=== PATIENT | female | born 1950 | race Caucasian/White ===

== ENCOUNTER 2022-07-17 07:24 | Inpatient (IN) | payer MEDICARE, SELFPAY ==
[2022-07-17] VITALS (47 sets, daily range): BP systolic 73–196; BP diastolic 46–104; PULSE 66–100; RESP 15–24; TEMP 36.6–37.1; O2SAT 95–100; BMI 24.7; BMI 20.5
--- NOTE | 2022-07-17 07:20 | ECG_ITS ---
APPROVED REPORT Exam: Resting ECG HR:73 bpm ECG Measurements Heart Rate 73 AXES NM 138 P 5 QRSd 76 QRS 44 QT 335 T 5 QTc 362 Conclusion SINUS RHYTHM LOW QRS VOLTAGE IN PRECORDIAL LEADS [QRS DEFLECTION < 1.0 mV IN CHEST LEADS] ST DEVIATION AND MODERATE T-WAVE ABNORMALITY, CONSIDER ANTERIOR ISCHEMIA [-0.1+ mV T-WAVE IN V3/V4] ABNORMAL ECG UNCONFIRMED REPORT Electronically signed by : Ryne Whitaker MD 07/17/2022 13:19:57
--- NOTE | 2022-07-17 07:25 | PC.NURSE ---
at , assessing pt. Pt c/o pain more in her lower left chest with pain going down bilateral arms.
--- NOTE | 2022-07-17 07:38 | XR_ITS ---
FINAL REPORT CLINICAL HISTORY: chest pain FINDINGS: A single portable view of the chest was obtained. The heart size and pulmonary vascularity are within normal limits. The mediastinum is within normal limits. There are mild right lung base opacities which may represent atelectasis or pneumonia. The bony thorax is intact. IMPRESSION: Mild right lung base atelectasis or pneumonia. Reviewed, Interpreted and Dictated by Hany Weston III, MD Transcribed by Candy Blanco Authenticated and [facility]
--- NOTE | 2022-07-17 07:40 | PC.NURSE ---
pt placed in gown, second IV placed, groin shaved, family at bs
--- NOTE | 2022-07-17 07:42 | ECG_ITS ---
APPROVED REPORT Exam: Resting ECG HR:75 bpm ECG Measurements Heart Rate 75 AXES OH 147 P 44 QRSd 78 QRS 34 QT 372 T -15 QTc [address] DEVIATION AND MODERATE T-WAVE ABNORMALITY, CONSIDER ANTEROLATERAL ISCHEMIA [-0.1+ mV T-WAVE IN V3-V6] ST DEVIATION AND MODERATE T-WAVE ABNORMALITY, CONSIDER INFERIOR ISCHEMIA [-0.1+ mV T-WAVE IN II/aVF] ABNORMAL ECG UNCONFIRMED REPORT Electronically signed by : Ryne Whitaker MD 07/17/2022 13:19:45
--- NOTE | 2022-07-17 07:45 | HMH.EDCP ---
Discharge Plan Disposition Patient Disposition: Admitted As Inpatient Referrals Follow up/Referrals: Provider,Referral, [Primary Care Provider] - See instructions Clinical Impressions Clinical Impression: Unstable angina pectoris, Acute coronary syndrome Discharge ED Provider: Denny Gibbs Chest Pain HPI General Chief Complaint: Chest Pain Stated Complaint: chest pain Time Seen by Provider: 07/17/22 07:30 Mode of Arrival: Ambulatory Source of Information: Patient, Spouse and Medical Record Limitations: No Limitations Description of Symptoms (Recalled from ER Triage Doc. by RN): pt comes in with chest pain that began about an hour ago. pt states that she had her normal routine, coffee and cookies for breakfast then the pain began in the middle of her chest. upon arrival pain moved down her into bilateral breasts and arms. History of Present Illness HPI narrative: pt with acute onset of chest pain this am - pt usually w/o chest pain - no currents meds - no known diabetes or ht dis - reports has memory issues complaint: chest pain indicative of cardiac Onset (ago): hour(s) Duration: constant Activity at onset: awoke with symptoms Pain location: substernal Severity: severe Quality: aching Pain radiation: RUE and LUE Associated symptoms: nausea Treatments prior to or on arrival for Cardiac Chest Pain: none ROXANA Score for Non-Stemi Age of Patient: 70-79 years old Heart Rate: 70-89 bpm Systolic Blood Pressure: 160-199 mmHg Serum Creatinine: 0.40-0.79 mg/dl CHF Killip Class: I-No CHF Other Risk Factors: None Non-Stemi Risk Score: 98 Risk Stratification: 1-108 = Low Risk Related Data On Oral Contraceptives: No Allergies Allergy/AdvReac Type Severity Reaction Status Date / Time No Known Allergies Allergy Verified 07/17/22 07:30 [facility] Disclaimer: The information contained in this section may have been updated after the patient was seen, as this information can be updated by other users. Social History Smoking Status: Never smoker alcohol intake: never current occupational status: retired Travel in the last 8 weeks: None ROS Obtained: Yes All systems reviewed & no additional complaints except as documented Physical Exam General General appearance: alert Head Head exam: normocephalic Eye Eye exam: Present PERRL and EOMI ENT ENT exam: Present mucous membranes moist Neck Neck exam: Present trachea midline Respiratory Respiratory exam: Present normal lung sounds bilaterally; Absent respiratory distress Cardiovascular Cardiovascular exam: Present regular rate, systolic murmur and +S4 Abdominal Exam Abdominal exam: Present soft Extremities Exam Extremities exam: Present full ROM Neurological Exam Neurological exam: Present alert, oriented X3 and CN II-XII intact; Absent motor sensory deficit Psychiatric Psychiatric exam: Present normal affect Skin Skin exam: Absent rash Medical Decision Making Medical Records Medical records reviewed: Yes I reviewed the patient's medical records. Aiden Inquiry Pt receiving controlled substance: No Vital Signs: 07/17/22 07:29 07/17/22 07:30 07/17/22 07:37 Temperature 98.7 F Temperature Source Oral Pulse Rate 77 74 Pulse Rate [Left] 71 Respiratory Rate 16 15 15 Blood Pressure 180/92 H 125/76 Blood Pressure [Right Arm] 196/98 H Blood Pressure Mean 118 94 Blood Pressure Mean [Right Arm] 130 02 Sat by Pulse Oximetry 100 98 99 07/17/22 07:41 07/17/22 07:43 07/17/22 07:48 Temperature Temperature Source Pulse Rate 77 77 68 Pulse Rate [Left] Respiratory Rate Blood Pressure 73/46 L 100/60 L 121/72 Blood Pressure [Right Arm] Blood Pressure Mean 55 68 79 Blood Pressure Mean [Right Arm] 02 Sat by Pulse Oximetry 07/17/22 07:55 07/17/22 08:01 Temperature Temperature Source Pulse Rate 71 68 Pulse Rate [Left] Respiratory Rate Blood Pressure 141/74 H 141/76 H Blood Pressure [R
[2022-07-17 07:49] LABS: Basophils % 0.4 % (0.1-2.0); Eosinophils # 0.1 K/mm3 (0.0-0.4); Eosinophils % 0.7 % (0.1-12.0); Hematocrit 30.7 % (37.0-47.0); Hemoglobin 10.1 g/dL (12.2-16.2); Lymphocytes # 2.2 K/mm3 (0.7-4.5); Lymphocytes % 22.8 % (10-50); Mean Corpuscular HGB Conc 32.9 g/dL (31.8-35.4); Mean Corpuscular Hemoglobin 30.1 pg (27.0-31.2); Mean Corpuscular Volume 91.4 fl (81-99); Mean Platelet Volume 7.8 fl (7.4-10.4); Monocytes # 0.5 K/mm3 (0.1-1.0); Monocytes % 5.7 % (1.7-9.3); Neutrophils # 6.7 K/mm3 (1.8-7.8); Neutrophils % 70.4 % (37.0-80.0); Platelet Count 491 K/mm3 (142-424); Red Blood Count 3.35 M/mm3 (4.20-5.40); Red Cell Distribution Width 13.7 % (11.5-17.5); White Blood Count 9.5 K/mm3 (4.8-10.8)
[2022-07-17 07:53] LABS: Anion Gap 12.8 mEq/L (5-15); Blood Urea Nitrogen 12 mg/dl (7-17); Calcium 8.9 mg/dl (8.4-10.2); Carbon Dioxide 26 mmol/L (22.0-30.0); Chloride 102 mmol/L (98-107); Creatinine Clearance Estimated 49 mL/min (50-200); Estimated Glomerular Filt Rate 82 ml/min (>60); GFR (African American) 99 ML/MIN (>60); Glucose 142 mg/dl (74-100); Potassium 3.8 mmoL/L (3.5-5.1); Sodium 137 mmol/L (136-145)
[2022-07-17 08:04] LABS: Alanine Aminotransferase 16 U/L (12-78); Albumin Level 4.3 g/dl (3.5-5.0); Alkaline Phosphatase 111 U/L (38-126); Aspartate Amino Transferase 24 U/L (14-36); Bilirubin,Direct 0.3 mg/dl (0.0-0.4); Bilirubin,Indirect 0.2 mg/dL (0.0-0.9); Bilirubin,Total 0.5 mg/dl (0.2-1.3); Bilirubin,Unconjugated 0.2 mg/dL (0.0-1.1); Total Protein,Serum 7.2 g/dl (6.3-8.2)
--- NOTE | 2022-07-17 08:04 | PC.NURSE ---
Called Cardilology for Dr Gibbs to speak to Jacques Lema, Cardiology is going to text him and have him call ER
[2022-07-17 08:10] LABS: Prothrombin Time 9.8 seconds (10.1-12.5)
[2022-07-17 08:11] LABS: Activated Partial Thrombo Time 18.8 seconds (22.8-30.6)
--- NOTE | 2022-07-17 08:11 | PC.NURSE ---
Dr Gibbs consulted with Jacques Lema on patient.
--- NOTE | 2022-07-17 08:12 | PC.NURSE ---
Pt c/o pain that got better but has came back at this time. Jacques Lema at bs, additional dose of nitro verbally ordered.
[2022-07-17 08:17] LABS: Troponin I 0.03 ng/ml (0.00-0.034)
--- NOTE | 2022-07-17 08:20 | PC.NURSE ---
Jacques Lema in with patient.
[2022-07-17 08:26] LABS: Chol/HDL Ratio 5.7 (1-3.5); Cholesterol 277 mg/dl (140-200); HDL Cholesterol 49 mg/dl (40-60); Triglycerides 279 mg/dl (30-150); VLDL Cholesterol 56 mg/dL (0-40)
--- NOTE | 2022-07-17 08:28 | IR_ITS ---
APPROVED REPORT Patient Location: Inpatient Sky Cap: MIRIAM Martinez RT (R) PROCEDURES Selective coronary angiogram Drug-eluting stent deployment to the ostial proximal mid dominant circumflex artery Drug-eluting stent deployment to the first obtuse marginal artery Drug-eluting stent deployment to the ramus intermedius Drug-eluting stent deployment to the proximal LAD Drug-eluting stent deployment to the proximal first diagonal artery INDICATION Acute coronary syndrome, Acute non-ST elevation myocardial infarction, Coronary artery disease SCAI INDICATION Clinical history: 73-year-old lady with moderate dementia presents to the hospital with severe chest pain. Patient was physically healthy otherwise but did suffer from moderate dementia. It was discussed with her he wanted everything done for the patient and the patient was pleasant and alert and did agree to proceed with cardiac catheterization. Prior to the cardiac catheterization it was decided patient would not be a bypass candidate because of the moderate dementia. All efforts to revascularize the patient would be restricted to percutaneous approach. This was decided prior to the cath Informed consent was obtained prior to the procedure. COMPLICATIONS None Estimated Blood Loss: Less than 10 ML TECHNIQUE One percent lidocaine used to anesthetize the right anterior aspect of the wrist. The right radial artery was accessed via the Seldinger technique. A 6 Nepali sheath was placed in the right radial artery. 2.5 mg of verapamil, 800 mcg of nitroglycerin, 1mg Lidocaine and 5000 U Heparin were given through the arterial sheath. The papa catheter was also used to perform selective coronary angiography. Wires were placed down the circumflex artery as well as the ramus intermedius. The ramus intermedius was predilated with a 2 mm x 12 mm balloon. Following this a 2.0 x 22 mm resolute Uvaldo stent was placed in the ostial proximal ramus intermedius reducing the critical stenosis to 0%. A wire was placed into the circumflex artery where predilatation was made in the circumflex artery. A 3.5 x 18 mm resolute Cascade stent was placed in the first obtuse marginal artery reducing the stenosis to 0%. There was a filling defect proximal to this therefore a 3.5 x 38 mm resolute Cascade stent was deployed at 20 elizabeth reducing the stenosis. An additional 3 mm x 12 mm resolute Uvaldo stent was placed distal to the first circumflex artery stent and then placed into a large obtuse marginal artery and deployed at 20 elizabeth. The balloon was brought back and deployed at 24 elizabeth to post dilate and mesh the 2 stents. Following this an additional 3.5 x 22 mm resolute Cascade stent was then placed in the ostial proximal circumflex artery overlapping the 38 mm stent and then deployed at 24 elizabeth reducing the stenosis. CASEY-3 flow was present before and after the procedure. Wire was placed into the LAD and then first diagonal artery. Predilatation was made and a 2.5 x 38 mm mm resolute Uvaldo stent was placed in the first diagonal artery. An additional 2.5 x 12 mm resolute Cascade stent was then placed proximal to this at 24 elizabeth. ANGIOGRAPHIC RESULTS The left main artery Normal The left anterior descending artery Ostially stenosed 90% and then gives rise to a large first diagonal artery which is 90% stenosis. Immediately after the first diagonal artery the LAD is occluded which appears to be chronic occlusion and fills via right to left collaterals The circumflex artery Is a large dominant vessel with a proximal 90% concentric calcified stenosis as well as a 70% stenosis and a large first obtuse marginal artery. A large ramus intermedius has an ostial proximal
[2022-07-17 08:30] LABS: Hemoglobin A1C 5.8 % (4.0-6.0)
[2022-07-17 08:37] LABS: Direct LDL Cholesterol 184.41 mg/dL (100-129)
--- NOTE | 2022-07-17 08:41 | PC.NURSE ---
Pt c/o continued pain at this time. Jacques ALONSO verbally ordered nitro paste for pt pain
--- NOTE | 2022-07-17 08:50 | PC.NURSE ---
Myself remained at the bs t/o pt stay in the ER until taken to lab nurse via lab nurse nurse Joann.
--- NOTE | 2022-07-17 08:55 | EXP.CARD.CON ---
History of Present Illness History of Present Illness Consult date: 07/17/22 Requesting physician: Ryne Wolf Consult reason: chest pain Chief complaint: ACS Additional Medical History:: 1. Chest pain, 07/17/2022, concern for acute coronary syndrome 2. History of hypertension currently on no medication 3. History of hyperlipidemia history of statin use but currently on no medication 4. Memory issues as yet undefined History of present illness: 73-year-old white female presented to the ER for complaint of chest pain with radiation into both arms that began approximately 1 hour prior to arrival. Patient's is with her and relates that she has had memory issues for over the last year but has never complained of chest pain like this. Patient is unable to quantify the intensity of the pain but just states that it hurts. Initially was given 2 sublingual nitroglycerin within 15 minutes with subsequent decreased blood pressure requiring IV fluid. Patient has been started on heparin drip along with being given loading dose of aspirin and Brilinta. Initial EKG showed sinus rhythm with ST T wave depression in the inferior and anterolateral leads that showed improvement laterally with second EKG after the patient was reportedly pain-free. Once chest pain began, the lateral ST segment depression returned. After IV fluids patient was given a third and fourth sublingual nitroglycerin with improvement of chest pain again. Nitroglycerin paste applied to the chest at that time. Initial troponin 0.03 Chest x-ray shows possible atelectasis versus pneumonia in the right lung base Discussed situation with Dr. Reid and will take patient to the cardiac [facility] for further evaluation. With patient's significant memory issues presumed dementia, it is not felt she would be a candidate for bypass surgery. Non-diabetic Non-smoker Hx of HTN, stopped med yrs ago Hx of HLD, stopped med yrs ago PFSH [facility] Disclaimer: The information contained in this section may have been updated after the patient was seen, as this information can be updated by other users. Medical History (Updated 07/17/22 @ 09:05 by GAVIN Dominique) History of hyperlipidemia History of hypertension Long-term memory impairment Social History (Updated 07/17/22 @ 08:27 by Denny Gibbs MD) Smoking Status: Never smoker alcohol intake: never current occupational status: retired Travel in the last 8 weeks: None Review of Systems Review of Systems Review of systems:: unable to obtain Exam Data for Last 24 hours Vital signs and Labs for Last 24 Hours: Temp Pulse Resp BP Pulse Ox 98.7 F 74 24 136/78 100 07/17/22 07:29 07/17/22 08:32 07/17/22 08:32 07/17/22 08:32 07/17/22 08:32 Laboratory Results - last 24 hr 07/17/22 07:27: PT 9.8 L, INR 0.90, APTT 18.8 L 07/17/22 07:27: WBC 9.5, RBC 3.35 L, Hgb 10.1 L, Hct 30.7 L, MCV 91.4, MCH 30.1, MCHC 32.9, RDW 13.7, Plt Count 491 H, MPV 7.8, Neut % (Auto) 70.4, Lymph % (Auto) 22.8, [place] % (Auto) 5.7, Eos % (Auto) 0.7, Baso % (Auto) 0.4, Neut # (Auto) 6.7, Lymph # (Auto) 2.2, [place] # (Auto) 0.5, Eos # (Auto) 0.1, Baso # (Auto) 0.0 07/17/22 07:27: Sodium 137, Potassium 3.8, Chloride 102, Carbon Dioxide 26, Anion Gap 12.8, BUN 12, Creatinine 0.70, Estimated Creat Clear 49, Estimated GFR 82, Est GFR ( Amer) 99, Glucose 142 H, Calcium 8.9 07/17/22 07:27: Total Bilirubin 0.5, Direct Bilirubin 0.3, Conjugated Bilirubin 0.0, Indirect Bilirubin 0.2, Unconjugated Bilirubin 0.2, AST 24, ALT 16, Alkaline Phosphatase 111, Total Protein 7.2, Albumin 4.3 07/17/22 07:27: Troponin I 0.03 07/17/22 07:27: Hemoglobin A1c 5.8 07/17/22 07:27: Triglycerides 279 H, Cholesterol 277 H, LDL Cholesterol Direct 184.41 H, VLDL Cholesterol 56 H, HDL Cholesterol 49, Cholesterol/HDL Ratio 5.7 H I & O for Last 24 hours: Intake & Output 07/14/22 07/15/22 07/16/22 07/17/22 11:59 11:59 11:59 11:59 Weight 140 lb Constitutional C
--- NOTE | 2022-07-17 09:38 | PC.NURSE ---
Addendum entered by Aydee Christie RN 07/17/22 10:02: time of intervention 0137 Original Note: zoll pads placed on pt, family at bs
--- NOTE | 2022-07-17 11:43 | PC.NURSE ---
patient arrived to floor from engineering lab technician [id number]
[2022-07-17 12:33] LABS: CATHL Activated Clotting Time > 400 SEC (74-125)
[2022-07-17 12:33] LABS: CATHL Activated Clotting Time 361 SEC (74-125)
[2022-07-17 12:34] LABS: CATHL Activated Clotting Time 180 SEC (74-125)
--- NOTE | 2022-07-17 12:44 | HMH.PHAINT1 ---
Pharmacy Intervention Comments: Verified with patient's that patient is currently not on any prescription medications at home. -Joanne Donnelly, PharmD Candidate 2022
[2022-07-17 13:25] LABS: Coronavirus 19, PCR Not Detected (NotDetected); Influenza A, PCR Not Detected (NotDetected); Influenza B, PCR Not Detected (NotDetected)
--- NOTE | 2022-07-17 13:26 | CT_ITS ---
FINAL REPORT TECHNIQUE: Axial images through the abdomen and pelvis were performed without contrast.This study was performed with techniques to keep radiation doses as low as reasonably achievable, (ALARA). Individualized dose reduction techniques using automated exposure control or adjustment of mA and/or kV according to the patient's size were employed. CLINICAL HISTORY: GI bleed?, abdominal pain FINDINGS: ABDOMEN: The lung bases demonstrate bibasilar atelectasis or scarring. The heart size is normal. Limited images of the liver are unremarkable. Gallbladder is moderately distended. The spleen is normal. No adrenal mass is identified. The aorta is normal in caliber. There is no significant free fluid or adenopathy. There is no nephrolithiasis. There is mild bilateral hydronephrosis and hydroureter. Residual contrast is seen in the renal collecting systems, ureters and urinary bladder. PELVIS: The appendix is normal. The urinary bladder is distended to the umbilicus. There is moderate stool throughout the colon. There is widespread diverticulosis. Moderate stool is seen throughout the colon. There is no significant free fluid or adenopathy. IMPRESSION: Distended urinary bladder with mild bilateral hydronephrosis and hydroureter. Residual contrast seen in the renal collecting systems, ureters and urinary bladder. Reviewed, Interpreted and Dictated by Hany Weston III, MD Transcribed by Miroslava Carter Authenticated and [facility]
[2022-07-17 14:12] LABS: Chloride 107 mmol/L (98-107); Sodium 135 mmol/L (136-145)
[2022-07-17 14:16] LABS: Blood Urea Nitrogen 9 mg/dl (7-17); Calcium 7.6 mg/dl (8.4-10.2); Carbon Dioxide 21 mmol/L (22.0-30.0); Creatinine Clearance Estimated 40 mL/min (50-200); Estimated Glomerular Filt Rate 97 ml/min (>60); GFR (African American) 118 ML/MIN (>60); Glucose 180 mg/dl (74-100)
[2022-07-17 14:19] LABS: Basophils % 0.1 % (0.1-2.0); Eosinophils # 0.1 K/mm3 (0.0-0.4); Hematocrit 22.6 % (37.0-47.0); Lymphocytes # 0.9 K/mm3 (0.7-4.5); Lymphocytes % 8.4 % (10-50); Mean Corpuscular Hemoglobin 29.5 pg (27.0-31.2); Mean Corpuscular Volume 92.4 fl (81-99); Mean Platelet Volume 7.7 fl (7.4-10.4); Monocytes # 0.2 K/mm3 (0.1-1.0); Monocytes % 1.9 % (1.7-9.3); Neutrophils # 9.3 K/mm3 (1.8-7.8); Neutrophils % 88.5 % (37.0-80.0); Platelet Count 423 K/mm3 (142-424); Red Blood Count 2.44 M/mm3 (4.20-5.40); White Blood Count 10.5 K/mm3 (4.8-10.8)
--- NOTE | 2022-07-17 14:21 | EXP.SURG.CON ---
History of Present Illness *Admission Date: 07/17/22 *Reason for visit:: GI bleeding *History of present illness: Patient is a 73-year-old female who had presented to the emergency department this morning with onset of chest pain. She had been started on a heparin drip and given loading dose of aspirin and Brilinta. There were some nonspecific EKG changes. Initial troponin was 0.03. Cardiology was consulted who had taken the patient to [facility]. She was found to have critical coronary disease and underwent PTCA with deployment of a total of 7 drug-eluting stents to revascularize the patient. Patient then had a large bloody bowel movement. Surgical consultation was obtained. Hemoglobin on admission was 10. Subsequent hemoglobin this afternoon is 7.2. Patient is quite a poor historian and uncooperative with history. [facility] Disclaimer: The information contained in this section may have been updated after the patient was seen, as this information can be updated by other users. Medical History (Updated 07/17/22 @ 15:00 by Hany Clark MD) Acute carpal tunnel syndrome of left wrist Acute carpal tunnel syndrome of right wrist History of hyperlipidemia History of hypertension Long-term memory impairment Family History (Updated 07/17/22 @ 12:49 by Chloé Acosta RN) Family history of myocardial infarction Social History (Updated 07/17/22 @ 12:50 by Chloé Acosta RN) Smoking Status: Never smoker alcohol intake: never current occupational status: retired Travel in the last 8 weeks: None Meds Home Medications and Allergies New Prescriptions to Start Prescriptions: Allergies Allergy/AdvReac Type Severity Reaction Status Date / Time No Known Allergies Allergy Verified 07/17/22 07:30 Exam (Inpt) Vital signs and Labs for Last 24 Hours: Temp Pulse Resp BP Pulse Ox 98.0 F 78 17 148/104 H 96 07/17/22 09:27 07/17/22 11:10 07/17/22 11:10 07/17/22 11:10 07/17/22 11:10 Laboratory Results - last 24 hr 07/17/22 07:27: PT 9.8 L, INR 0.90, APTT 18.8 L 07/17/22 07:27: WBC 9.5, RBC 3.35 L, Hgb 10.1 L, Hct 30.7 L, MCV 91.4, MCH 30.1, MCHC 32.9, RDW 13.7, Plt Count 491 H, MPV 7.8, Neut % (Auto) 70.4, Lymph % (Auto) 22.8, [place] % (Auto) 5.7, Eos % (Auto) 0.7, Baso % (Auto) 0.4, Neut # (Auto) 6.7, Lymph # (Auto) 2.2, [place] # (Auto) 0.5, Eos # (Auto) 0.1, Baso # (Auto) 0.0 07/17/22 07:27: Sodium 137, Potassium 3.8, Chloride 102, Carbon Dioxide 26, Anion Gap 12.8, BUN 12, Creatinine 0.70, Estimated Creat Clear 49, Estimated GFR 82, Est GFR ( Amer) 99, Glucose 142 H, Calcium 8.9 07/17/22 07:27: Total Bilirubin 0.5, Direct Bilirubin 0.3, Conjugated Bilirubin 0.0, Indirect Bilirubin 0.2, Unconjugated Bilirubin 0.2, AST 24, ALT 16, Alkaline Phosphatase 111, Total Protein 7.2, Albumin 4.3 07/17/22 07:27: Troponin I 0.03 07/17/22 07:27: Hemoglobin A1c 5.8 07/17/22 07:27: Triglycerides 279 H, Cholesterol 277 H, LDL Cholesterol Direct 184.41 H, VLDL Cholesterol 56 H, HDL Cholesterol 49, Cholesterol/HDL Ratio 5.7 H 07/17/22 10:05: Activated Clotting Time 180 H* 07/17/22 10:25: Activated Clotting Time > 400 H* D 07/17/22 11:20: Activated Clotting Time 361 H* 07/17/22 13:13: Crossmatch ([facility]) See Detail 07/17/22 13:13: Sodium 135 L, Potassium 4.0, Chloride 107, Carbon Dioxide 21 L, Anion Gap 11.0, BUN 9, Creatinine 0.60, Estimated Creat Clear 40, Estimated GFR 97, Est GFR ( Amer) 118, Glucose 180 H D, Calcium 7.6 L I & O for Labs for Last 24 Hours: Intake & Output 07/15/22 07/16/22 07/17/22 07/18/22 11:59 11:59 11:59 11:59 Weight 140 lb 116 lb 3 oz Constitutional: no acute distress Head: Present normocephalic Neck: Present normal inspection Respiratory: Absent accessory muscle use Cardiac: Present Reg Rate and Rhythm GI: Present soft Additional Findings:: Examination is rather limited due to the patient being essentially combative and uncooperative. Results Labs Result diagrams: 07/06
[2022-07-17 14:30] LABS: Hemoglobin 7.2 g/dL (12.2-16.2); MANUAL DIFFERENTIAL MANUAL DIFFERENTIAL (MANUAL DIFF)
--- NOTE | 2022-07-17 14:58 | PC.NURSE ---
WHEN PT ARRIVED TO THE FLOOR FROM [facility] SHE WAS VERY AGITATED/COMBATIVE/CONFUSED. PT STATED SHE NEEDED TO URINATE AND WAS VERY UNHAPPY ABOUT HAVING TO USE THE BEDPAN. PT WOULD NOT URINATE IN THE BEDPAN AND WHEN IT WAS REMOVED A SMALL AMOUNT OF BLOOD WAS NOTED ON THE BED. 15 MIN LATER PT HAD A DARK/RED/LARGE AMOUNT OF LOOSE STOOL. NOTIFIED AND HE ARRIVED TO PT'S BEDSIDE. 1L LR IVF BOLUS WAS ORDERED AND PT WAS TYPE AND SCREENED FOR [address] OF THE ABDOMEN AND GENERAL SURGERY CONSULT WAS ALSO ORDERED. BP RESPONDED WELL TO THE IVF BOLUS. PT WILL BE TRANSFERRED TO STEP DOWN STATUS. REPORT HANDOFF TO ESCOBAR TURNER RN.
[2022-07-17 15:25] LABS: Hypochromasia 1+; Lymphocytes % 12 % (10-50); Monocytes % 2 % (2-9); Neutrophils % 86 % (42-76); Platelet Estimate Normal; Total Cells Counted 100
--- NOTE | 2022-07-17 20:11 | EXP.HP ---
History of Present Illness *Admission Date: 07/17/22 *Reason for visit:: chest pain, unstable angina *History of present illness: Ms. Holder is a 73-year-old female who presented to the ER this morning with complaint of chest pain radiating into both her arms. helps provide history. States the pain began early this morning and was not getting better. Proximately an hour before arrival. She stated that it was in her chest and pointed to her sternum. brought her to the ER for further evaluation. He states that she has memory issues over the past several years concerning for dementia. She has never had complaint of chest pain before and generally does not complain of symptoms often. Does not currently see a doctor and takes only [id number] medications occasionally including Aleve and Tylenol. Unable to quantify intensity of pain but just states that it hurts. She was initially given 2 sublingual nitroglycerin with improvement in her pain but also decrease in her blood pressure. Noted to be hypertensive on arrival to the ER. Started on a heparin drip with a loading dose of aspirin and Brilinta for concern for unstable angina/NSTEMI. Initial EKG obtained showing ST and T wave depressions in inferior and anterolateral leads. Cardiology was consulted for unstable angina. Initial troponin 0.03. Patient was taken to the [facility] from the ER where she underwent stenting of multivessel disease. Significant disease identified in the [facility] however patient is not a candidate for bypass surgery due to her dementia. Admitted to medicine after cath for further management. After arriving to the floor, patient noted to have a large maroon bowel movement. denies any previous history of melena or hematochezia however he does report that when he and his son were working on a problem with her plumbing at their house 2 days ago, he noted blood in the pipes. Patient is somnolent after her procedure however is complaining of tenderness in her lower abdomen on exam and denying any further chest pain at this time. [facility] Disclaimer: The information contained in this section may have been updated after the patient was seen, as this information can be updated by other users. Medical History Acute carpal tunnel syndrome of left wrist Acute carpal tunnel syndrome of right wrist History of hyperlipidemia History of hypertension Long-term memory impairment Family History Family history of myocardial infarction Social History Smoking Status: Never smoker alcohol intake: never current occupational status: retired Travel in the last 8 weeks: None Review of Systems Review of Systems Review of systems (narrative): 14 point review of systems performed, pertinent positives and negatives as per HPI Meds Home Medications and Allergies New Prescriptions to Start Prescriptions: Allergies Allergy/AdvReac Type Severity Reaction Status Date / Time No Known Allergies Allergy Verified 07/17/22 07:30 Exam Data for Last 24 hours Vital signs and Labs for Last 24 Hours: Temp Pulse Resp BP Pulse Ox 98.7 F 79 17 127/72 98 07/17/22 19:15 07/17/22 19:15 07/17/22 19:15 07/17/22 19:15 07/17/22 19:15 Laboratory Results - last 24 hr 07/17/22 07:27: PT 9.8 L, INR 0.90, APTT 18.8 L 07/17/22 07:27: WBC 9.5, RBC 3.35 L, Hgb 10.1 L, Hct 30.7 L, MCV 91.4, MCH 30.1, MCHC 32.9, RDW 13.7, Plt Count 491 H, MPV 7.8, Neut % (Auto) 70.4, Lymph % (Auto) 22.8, Vance % (Auto) 5.7, Eos % (Auto) 0.7, Baso % (Auto) 0.4, Neut # (Auto) 6.7, Lymph # (Auto) 2.2, Vance # (Auto) 0.5, Eos # (Auto) 0.1, Baso # (Auto) 0.0 07/17/22 07:27: Sodium 137, Potassium 3.8, Chloride 102, Carbon Dioxide 26, Anion Gap 12.8, BUN 12, Creatinine 0.70, Estimated Creat Clear 49, Estimated GFR 82, Est G
[2022-07-17 22:10] LABS: Hematocrit 29.3 % (37.0-47.0)
[2022-07-17 22:12] LABS: Hemoglobin 9.7 g/dL (12.2-16.2)
[2022-07-18] VITALS (32 sets, daily range): BP systolic 71–137; BP diastolic 25–96; PULSE 83–125; RESP 15–22; TEMP 36.2–37.2; O2SAT 88–100; BMI 20.5
[2022-07-18 04:23] LABS: POC Glucose,Bedside 186 (70-110)
--- NOTE | 2022-07-18 04:39 | PC.NURSE ---
Pt tolerated blood transfusion this shift. Has been confused at times and resistive to care. Safety alarm has remained in place. Pt attempted to get oob without assistance and did not tolerate. She stated she couldn't get up and was noted to be diaphoretic. FSBS and VS obtained. Roger Serrato SALES AND MARKETING EXECUTIVE notified. Education given to pt about importance on not getting up OOB at this time. (R) radial cath site is bruised. DSG in place.
[2022-07-18 06:34] LABS: Basophils % 0.1 % (0.1-2.0); Lymphocytes % 5.8 % (10-50); Mean Corpuscular HGB Conc 32.9 g/dL (31.8-35.4); Monocytes # 0.8 K/mm3 (0.1-1.0); White Blood Count 16.9 K/mm3 (4.8-10.8)
[2022-07-18 06:40] LABS: Eosinophils # 0.1 K/mm3 (0.0-0.4); Eosinophils % 0.6 % (0.1-12.0); Hematocrit 26.5 % (37.0-47.0); Mean Corpuscular Hemoglobin 30.3 pg (27.0-31.2); Mean Corpuscular Volume 91.9 fl (81-99); Mean Platelet Volume 7.3 fl (7.4-10.4); Monocytes % 4.7 % (1.7-9.3); Neutrophils % 88.8 % (37.0-80.0); Platelet Count 301 K/mm3 (142-424); Red Blood Count 2.88 M/mm3 (4.20-5.40)
[2022-07-18 06:46] LABS: Alanine Aminotransferase 31 U/L (12-78); Albumin Level 2.7 g/dl (3.5-5.0); Albumin/Globulin Ratio 1.4 (1.1-1.8); Alkaline Phosphatase 56 U/L (38-126); Anion Gap 9.3 mEq/L (5-15); Aspartate Amino Transferase 125 U/L (14-36); Bilirubin,Total 0.6 mg/dl (0.2-1.3); Blood Urea Nitrogen 21 mg/dl (7-17); Calcium 7.6 mg/dl (8.4-10.2); Carbon Dioxide 21 mmol/L (22.0-30.0); Chloride 110 mmol/L (98-107); Creatinine Clearance Estimated 40 mL/min (50-200); Estimated Glomerular Filt Rate 97 ml/min (>60); GFR (African American) 118 ML/MIN (>60); Glucose 168 mg/dl (74-100); Magnesium 2.2 mg/dl (1.6-2.3); Potassium 4.3 mmoL/L (3.5-5.1); Sodium 136 mmol/L (136-145); Total Protein,Serum 4.7 g/dl (6.3-8.2)
[2022-07-18 06:50] LABS: Hemoglobin 8.7 g/dL (12.2-16.2); MANUAL DIFFERENTIAL MANUAL DIFFERENTIAL (MANUAL DIFF)
[2022-07-18 07:53] LABS: Lymphocytes % 10 % (10-50); Monocytes % 3 % (2-9); Neutrophils % 87 % (42-76); Platelet Estimate Normal; RBC Morphology Normal; Total Cells Counted 100
--- NOTE | 2022-07-18 09:40 | PC.NURSE ---
PT O2 DESATS TO 88% ON ROOM AIR WITH AMBULATION 2LNC REAPPLIED.
--- NOTE | 2022-07-18 10:16 | EXP.CARD.PN ---
Subjective Subjective Date: 07/18/22 Time: 10:16 Principal diagnosis: ACS, GI bleed Interval history: 73-year-old white female in bed in no acute distress. Much more alert today. Denies chest pain, pressure or tightness. Denies any abdominal pain at this time. She has begun to pass flatus this morning She is receiving another unit of blood currently Exam Data for Last 24 hours Vital signs and Labs for Last 24 Hours: Temp Pulse Resp BP Pulse Ox 98.9 F 91 H 18 116/64 88 L 07/18/22 09:05 07/18/22 09:05 07/18/22 09:05 07/18/22 09:05 07/18/22 09:41 Laboratory Results - last 24 hr 07/17/22 07:27: Blood Type Confirm O Positive 07/17/22 10:05: Activated Clotting Time 180 H* 07/17/22 10:25: Activated Clotting Time > 400 H* D 07/17/22 11:20: Activated Clotting Time 361 H* 07/17/22 13:00: SARS-CoV-2 (PCR) Not detected, Influenza A Untype (PCR) Not detected, Influenza Type B (PCR) Not detected 07/17/22 13:13: Blood Type O Positive, Antibody Screen Negative, Crossmatch (AHG) See Detail 07/17/22 13:13: WBC 10.5, RBC 2.44 L D, Hgb 7.2 L D, Hct 22.6 L, MCV 92.4, MCH 29.5, MCHC 32.0, RDW 14.0, Plt Count 423, MPV 7.7, Neut % (Auto) 88.5 H, Lymph % (Auto) 8.4 L, Butts % (Auto) 1.9, Eos % (Auto) 1.0, Baso % (Auto) 0.1, Neut # (Auto) 9.3 H, Lymph # (Auto) 0.9, Butts # (Auto) 0.2, Eos # (Auto) 0.1, Baso # (Auto) 0.0, Total Counted 100, Neutrophils % (Manual) 86 H, Lymphocytes % (Manual) 12, Monocytes % (Manual) 2, Platelet Estimate Normal, RBC Morphology Not Reportable, Hypochromasia 1+ 07/17/22 13:13: Sodium 135 L, Potassium 4.0, Chloride 107, Carbon Dioxide 21 L, Anion Gap 11.0, BUN 9, Creatinine 0.60, Estimated Creat Clear 40, Estimated GFR 97, Est GFR ( Amer) 118, Glucose 180 H D, Calcium 7.6 L 07/17/22 21:45: Hgb 9.7 L D, Hct 29.3 L 07/18/22 04:08: POC Glucose 186 H 07/18/22 06:13: WBC 16.9 H D, RBC 2.88 L, Hgb 8.7 L D, Hct 26.5 L, MCV 91.9, MCH 30.3, MCHC 32.9, RDW 14.0, Plt Count 301 D, MPV 7.3 L, Neut % (Auto) 88.8 H, Lymph % (Auto) 5.8 L, Butts % (Auto) 4.7, Eos % (Auto) 0.6, Baso % (Auto) 0.1, Neut # (Auto) 15.0 H, Lymph # (Auto) 1.0, Butts # (Auto) 0.8, Eos # (Auto) 0.1, Baso # (Auto) 0.0, Total Counted 100, Neutrophils % (Manual) 87 H, Lymphocytes % (Manual) 10, Monocytes % (Manual) 3, Platelet Estimate Normal, RBC Morphology Normal 07/18/22 06:13: Sodium 136, Potassium 4.3, Chloride 110 H, Carbon Dioxide 21 L, Anion Gap 9.3, BUN 21 H D, Creatinine 0.60, Estimated Creat Clear 40, Estimated GFR 97, Est GFR ( Amer) 118, Glucose 168 H, Calcium 7.6 L, Magnesium 2.2, Total Bilirubin 0.6, AST 125 H D, ALT 31 D, Alkaline Phosphatase 56, Total Protein 4.7 L D, Albumin 2.7 L D, Globulin 2.0, Albumin/Globulin Ratio 1.4 I & O for Last 24 hours: Intake & Output 07/15/22 07/16/22 07/17/22 07/18/22 11:59 11:59 11:59 11:59 Intake Total 1860 / 1860 Output Total 1500 / 1500 Balance 360 / 360 Weight 140 lb 116 lb Constitutional Constitutional: no acute distress *Routine Respiratory Exam Respiratory: Present CTA bilaterally *Routine Cardiovascular Exam Cardiovascular: Present RRR *Routine Abdominal Exam Abdominal: Present normoactive bowel sounds Progress Note: A&P Assessment and plan (1) Unstable angina pectoris: Status: Acute (2) Acute coronary syndrome: Status: Acute (3) Acute blood loss anemia: Status: Acute (4) GI (gastrointestinal bleed): Status: Acute (5) Long-term memory impairment: Status: Acute Assessment and Plan Assessment and Plan for All Diagnoses:: 1.? CAD with unstable angina/acute coronary syndrome with fluctuating EKG changes.? -Status post 7 CRESENCIO to trifurcating disease of the left system (LAD, circumflex and ramus) with distal LAD supplied by right to left collaterals from RCA. -DAPT with aspirin 81 mg daily and Brilinta 90 mg twice daily 2.? HTN -Controlled on no meds 3.? HLD, LDL 184, triglycerides 279, cholesterol 277, HDL 49 on 07/17/2022 -Atorvastatin 40 mg
--- NOTE | 2022-07-18 10:30 | P.PN_ITS ---
[facility] Disclaimer: The information contained in this section may have been updated after the patient was seen, as this information can be updated by other users. Medical History Acute carpal tunnel syndrome of left wrist Acute carpal tunnel syndrome of right wrist History of hyperlipidemia History of hypertension Long-term memory impairment Family History Other Family history of myocardial infarction Social History Smoking Status: Never smoker alcohol intake: never substance use type: denies use current occupational status: retired Travel in the last 8 weeks: None [facility] Anesthesia Checklist Patient Identification Patient Identification: Arm Band and Verbal (Name & ) Structural Data Admitted From: Inpatient Planned Operative Procedure/s: EGD Consent for Planned Operative Procedure(s) Verified: Yes NPO Status Verified Time NPO: 00:00 Chart Verification Results Verified: CBC and BMP Airway Assessment C-Spine Mobility Assessed: Yes TMJ Mobility Assessed: Yes Dentition: Poor Dentition Neurological Assessment Level of Consciousness: Awake Hx Seizures: No Numbness or tingling in extremities: No Anesthesia Plan Anesthesia Risk discussed: Yes Anesthesia Plan: Verified ASA Class: IV (TUSHAR) Anesthesia Type: MAC
--- NOTE | 2022-07-18 13:07 | P.PCN_ITS ---
Procedure: Date: 07/18/22 Patient Date of :: 1950 Procedure Performed:: Esophagogastroduodenoscopy Indications:: Patient is a 73-year-old female who presented to the emergency department on the morning of 07/17/2022 with chest pain. She was evaluated emergency department and started on heparin drip. She was given a loading dose of aspirin and Brilinta. She had some EKG changes. Initial troponin was 0.03. Cardiology was consulted and took the patient to the [facility]. She underwent PTCA with deployment of 7 drug-eluting stents. Following that the patient had a large bloody bowel movement. Hemoglobin on admission was 10. Subsequent hemoglobin was 7.2. Surgical consultation was obtained. Patient was transfused a couple of units of blood with good response. Performing Provider:: Hany Clark MD Referring Provider:: Surinder Wolf MD Sedation:: MAC sedation Procedure:: Patient was taken to endoscopy procedure room. She was positioned in lateral decubitus position. Adequate intravenous sedation was achieved. Olympus endoscope was inserted via the oropharynx. Esophagus was cannulated. There was some mild tortuosity of the esophagus consistent with possible esophageal dysmotility. Gastroesophageal junction was encountered at 35 cm. Stomach was cannulated and insufflated. Retroflexion revealed no evidence of any appreciable hiatal hernia. Overall gastric lumen appeared unremarkable. Pylorus was traversed. Duodenal bulb and duodenal sweep appeared unremarkable. Endoscope was withdrawn into the stomach which was desufflated and the endoscope was withdrawn. Findings:: Gastroesophageal junction at 35 cm No upper GI etiology for GI blood loss Recommendations:: No upper GI etiology for blood loss. This may be diverticular. At this time I would plan for expectant management with observation, possible repeat transfusion if needed. Assuming diverticular bleed this is often a self-limited phenomenon. Complications:: None immediately apparent Estimated blood obtained (mL): 0
[2022-07-18 15:15] LABS: Hematocrit 26.8 % (37.0-47.0); Hemoglobin 9.1 g/dL (12.2-16.2)
--- NOTE | 2022-07-18 16:21 | PC.NURSE ---
pt is alert to self. pt mood and cooperation with staff changes from interaction to interaction. pt will be pleasant, conversant and cooperative then mood will drastically change to violent/combative and agitated with staff. family states that pt has occasionally episodes where she is confused about situation and environment, and that anesthesia typically makes this worse. pt lungs are clear, pt able to ambulate to bathroom without assistance. pt refused to allow staff to stay close for safety r/t pt being post anesthesia. pt slammed door is staff face and threatened to scream if she wasn't left alone.
--- NOTE | 2022-07-18 17:15 | PC.NURSE ---
staff entered patients room when bed safety began to alarm. pt was in the process of removing heart monitor, pulse oximeter and scuds device. asked pt if she needed any help with anything, pt began to yell and verbally abuse staff. pt then proceeded to enter the bathroom and stated that she was not coming out again until staff left her alone. attempted to explain to pt that she was a falls risk because of the medication she received earlier in her procedure. family was contacted
--- NOTE | 2022-07-18 17:47 | PC.NURSE ---
late entry: 1630 staff entered patients room when bed safety began to alarm. pt was in the process of removing heart monitor, pulse oximeter and scuds device. asked pt if she needed any help with anything, pt began to yell at staff and became aggressive. pt then proceeded to enter the bathroom and stated that she was not coming out again until staff left her alone. attempted to explain to pt that she was a falls risk because of the medication she received earlier in her procedure. pt refused to acknowledge anything from staff. 1720 family contacted staff at this time for an update on pt scope. at this time family was informed of situation with pt, confusion and behavior. 1730 Dr Wolf was informed as well. Dr Wolf made rounds on pt as well at this time, pt became verbally aggressive with him as well. unable to redirect pt. pt has demanded that staff leave her room even going as far as slamming door once staff are in the hallway. pt did have a bm during this time, Dr Wolf did visualize stool in commode, states that it is still very red/bloody in appearance. family eventually arrived at approx 1745. family entered the room and began talking to the pt. she then started to yell at them and told her and grandson to leave her room as well. family waited 10 minutes, reentered the room and pt demeanor had changed and she was cordial with family.
--- NOTE | 2022-07-18 18:08 | EXP.ACUTE.PN ---
Subjective *Date: 07/18/22 *Time: 18:08 Interval history: Patient initially pleasant on morning exam, has become more agitated through the course of the day. She is just wanting to be left alone. States that nurses are aggravating her and she wants them to leave her be. Has been ambulating independently to the bathroom though is somewhat unsteady on her feet. Had 3 bloody bowel movements today. Stable on room air. Vitals remained stable. Denies chest pain, shortness of breath, nausea or vomiting. Has poor insight to current situation. Afebrile. Medical Exam Vital signs and Labs for Last 24 Hours: Vital Signs Temp Pulse Pulse Pulse Resp BP BP 07/18/22 16:36 97.9 F 07/18/22 16:00 101 H 22 137/49 L 07/18/22 15:15 90 20 105/62 L 07/18/22 14:45 89 20 102/62 L 07/18/22 14:30 92 H 18 108/64 L 07/18/22 14:15 92 H 20 107/65 L 07/18/22 14:00 97 H 18 109/64 L 07/18/22 13:52 101 H 20 109/66 L 07/18/22 14:00 93 H 07/18/22 13:39 98 H 17 102/51 L 07/18/22 13:29 103 H 15 93/59 L 07/18/22 13:19 111 H 15 94/55 L 07/18/22 13:09 97.6 F 125 H 16 71/25 L 07/18/22 12:00 98.1 F 83 16 120/65 07/18/22 12:00 87 07/18/22 12:30 98.4 F 85 18 121/67 07/18/22 12:00 98.1 F 07/18/22 11:30 98.4 F 84 18 121/67 07/18/22 11:05 98.3 F 87 18 110/60 07/18/22 10:05 98.6 F 85 18 113/68 07/18/22 09:50 98.3 F 87 18 114/63 07/18/22 09:35 98.9 F 90 18 111/64 07/18/22 09:20 98.6 F 92 H 18 111/70 07/18/22 09:15 98.9 F 91 H 18 106/66 L 07/18/22 09:10 98.7 F 95 H 18 119/66 07/18/22 09:41 07/18/22 08:00 98.9 F 90 18 120/64 07/18/22 09:05 98.9 F 91 H 18 116/64 07/18/22 09:00 98.1 F 90 18 123/68 07/18/22 06:00 85 20 121/69 07/18/22 04:00 110 H 07/18/22 04:00 97.1 F L 88 20 113/82 07/18/22 02:00 88 16 111/67 07/18/22 00:00 100 H 07/17/22 20:00 80 07/18/22 00:00 98.6 F 93 H 17 108/66 L 07/17/22 21:42 98.5 F 85 17 110/69 07/17/22 20:42 98.8 F 81 18 130/79 07/17/22 20:30 98.8 F 80 19 133/80 07/17/22 19:30 98.8 F 78 18 130/78 07/17/22 19:15 98.7 F 79 17 127/72 07/17/22 19:00 98.7 F 79 18 130/73 07/17/22 18:45 98.6 F 80 18 126/73 07/17/22 18:40 98.6 F 82 16 131/76 07/17/22 18:35 98.8 F 81 17 135/68 07/17/22 18:30 98.8 F 79 16 121/68 07/17/22 18:25 98.7 F 85 18 123/74 07/17/22 18:10 98.7 F 81 18 124/73 Pulse Ox 07/18/22 16:36 07/18/22 16:00 99 07/18/22 15:15 100 07/18/22 14:45 99 07/18/22 14:30 97 07/18/22 14:15 98 07/18/22 14:00 98 07/18/22 13:52 98 07/18/22 14:00 99 07/18/22 13:39 100 07/18/22 13:29 97 07/18/22 13:19 96 07/18/22 13:09 98 07/18/22 12:00 99 07/18/22 12:00 07/18/22 12:30 97 07/18/22 12:00 07/18/22 11:30 99 07/18/22 11:05 99 07/18/22 10:05 97 07/18/22 09:50 97 07/18/22 09:35 97 07/18/22 09:20 98 07/18/22 09:15 97 07/18/22 09:10 98 07/18/22 09:41 88 L 07/18/22 08:00 98 07/18/22 09:05 98 07/18/22 09:00 98 07/18/22 06:00 98 07/18/22 04:00 07/18/22 04:00 99 07/18/22 02:00 98 07/18/22 00:00 07/17/22 20:00 07/18/22 00:00 99 07/17/22 21:42 99 07/17/22 20:42 99 07/17/22 20:30 100 07/17/22 19:30 97 07/17/22 19:15 98 07/17/22 19:00 100 07/17/22 18:45 100 07/17/22 18:40 100 07/17/22 18:35 100 07/17/22 18:30 100 07/17/22 18:25 100 07/17/22 18:10 99 Intake and Output 07/18/22 07/18/22 07/18/22 07:59 15:59 23:59 Intake Total 0 / 0 Output Total 500 / 1000 0 / 1000 500 / 1000 Balance -500 / -1000 0 / -1000 -500 / -1000 Intake: Intake (Blood Product) Amt 0 / 0 Red Blood Cells Unit 0 / 0 [id number] Output: Output, Urine Amount 500 / 1000 0 /
--- NOTE | 2022-07-18 19:57 | PC.NURSE ---
pt continues to refuse tele leads and pulse ox and pt continues to take IV's out, Estephania camacho RN just replaced one for the 2 she pulled out 1914 and she has already pulled the new one out, notified SILVANA Lai okay to keep IV out until further notice, Ming stated if VS show symptomatic of bleeding will need to place one to give blood but other than that okay to keep leads off and IV out; BEHAVIORAL ASSISTANT and RN rounded on pt and pt informed us she would like for us stop aggravating her , Sara YEN will get VS every 2 hours
--- NOTE | 2022-07-18 20:03 | PC.NURSE ---
0 pt bed safety in pt room alarms. upon entering room staff found pt to have removed both of her iv's and was bleeding from sites. pt and room were cleaned up after dressings were applied to bleeding sites. joe wagner attempted to place iv x 2, unsuccessful. iv was able to be placed in l fa by myself. during rounds at 193 it was noted that pt had again removed her own iv and had placed her own dressing on the iv. when asked why she removed the iv, she stated that she no longer needed the iv and no one told her she still needed it.
--- NOTE | 2022-07-18 20:07 | PC.NURSE ---
post op vitals were scheduled to be taken at 1650, 1750 and 1850. pt repeatedly removes blood pressure cuff, heart monitor and pulse ox. Dr Wolf was notified face to face that pt was not compliant with care. no new orders.
--- NOTE | 2022-07-18 20:18 | CA_ITS ---
APPROVED REPORT EXAM: Comprehensive 2D, Doppler, and color-flow Echocardiogram Gore Inserter: Olga Díaz CRT Ht: 5 ft 3 in Wt: 116lbs BSA: 1.53 BP: 127/72 mmHg Indications: Non STEMI, 7 stents, dementia, anemia 2D Dimensions LVOT 1.35 cm (M/F) 1.5-2.5 M-Mode Dimensions RVDd 2.85 cm (0.9-2.6) LA Diam 3.04 cm (1.9-4.0) LVDd 2.72 cm (3.5-5.7) Ao Diam 4.03 cm (2.0-3.7) LVDs 1.98 cm (3.5-5.7) IVSd 1.41 cm (0.6-1.1) PWd 1.34 cm (0.6-1.1) EF (Teich) 54.90% FS 27.20% EDV (Teich) 27.50 mL TAPSE 1.52 (<1.7) ESV (Teich) 12.40 mL LV Diastology E Decel Time 193.00 (160-240 msec) E/A Ratio 0.80 MED E' 7.30 (< 7 cm/sec) MED A' 10.40 cm/s E'/MED E' Ratio 7.63 (>14) LAT E' 5.50 (<10 cm/sec) LAT A' 10.90 cm/s E/LAT E' Ratio 10.13 (>14) Aortic Valve AO Peak GR. 7.60 mmHg Mitral Valve MV A Velocity 69.00 (40-130 cm/s) E/A Ratio 0.80 MV Decel. Time 193.00 (160-240 ms) Pulmonary Valve PV Peak Velocity 134.00 (50-150 cm/s) Tricuspid Valve TR P. Velocity 258.00 cm/s RAP Estimate 10.00 mmHg RVSP 36.60 mmHg Left Ventricle There is mild enlargement left ventricle is normal size mild concentric left ventricular hypertrophy, estimated ejection fraction 55% with no regional wall motion abnormality, grade 1 diastolic dysfunction seen without tissue Doppler evidence of raise left atrial pressure. Right Ventricle Right atrium and right ventricle are normal size and contractility. Aortic Valve Aortic valve is thickened and calcified without aortic stenosis aortic insufficiency. Mitral Valve Mitral valve is grossly normal, there is trace mitral regurgitation. Tricuspid Valve Tricuspid grossly normal, there is trace tricuspid regurgitation, tricuspid regurgitation jet velocity is inadequate for calculation of the right ventricular systolic pressure. Pulmonic Valve Pulmonic valve is poorly visualized. Great Vessels Aortic root is normal size. Inferior vena cava is poorly visualized. Pericardium No significant pericardial effusion noted. Conclusion 1. Normal left ventricular size, estimated ejection fraction 55% with no regional wall motion abnormality, grade 1 diastolic dysfunction seen without tissue Doppler evidence of raise left atrial pressure. 2. Trace mitral and tricuspid regurgitation. 3. No significant pericardial effusion noted. 4. Inferior vena cava is poorly visualized. Electronically signed by : Todd Rob MD 07/18/2022 13:34:39
--- NOTE | 2022-07-18 20:32 | EXP.PN ---
Subjective *Date: 07/19/22 *Time: 14:57 Interval history: confusion, pulling out new IV . Nurse called me about patient not leaving IV in . a 20 gauge had just been place 15 minutes earlier. Exam Data for Last 24 hours Vital signs and Labs for Last 24 Hours: Temp Pulse Resp BP Pulse Ox 97.9 F 101 H 22 137/49 L 99 07/18/22 16:36 07/18/22 16:00 07/18/22 16:00 07/18/22 16:00 07/18/22 16:00 Laboratory Results - last 24 hr 07/17/22 13:13: Blood Type O Positive, Antibody Screen Negative, Crossmatch (AHG) See Detail 07/17/22 21:45: Hgb 9.7 L D, Hct 29.3 L 07/18/22 04:08: POC Glucose 186 H 07/18/22 06:13: WBC 16.9 H D, RBC 2.88 L, Hgb 8.7 L D, Hct 26.5 L, MCV 91.9, MCH 30.3, MCHC 32.9, RDW 14.0, Plt Count 301 D, MPV 7.3 L, Neut % (Auto) 88.8 H, Lymph % (Auto) 5.8 L, [place] % (Auto) 4.7, Eos % (Auto) 0.6, Baso % (Auto) 0.1, Neut # (Auto) 15.0 H, Lymph # (Auto) 1.0, [place] # (Auto) 0.8, Eos # (Auto) 0.1, Baso # (Auto) 0.0, Total Counted 100, Neutrophils % (Manual) 87 H, Lymphocytes % (Manual) 10, Monocytes % (Manual) 3, Platelet Estimate Normal, RBC Morphology Normal 07/18/22 06:13: Sodium 136, Potassium 4.3, Chloride 110 H, Carbon Dioxide 21 L, Anion Gap 9.3, BUN 21 H D, Creatinine 0.60, Estimated Creat Clear 40, Estimated GFR 97, Est GFR ( Amer) 118, Glucose 168 H, Calcium 7.6 L, Magnesium 2.2, Total Bilirubin 0.6, AST 125 H D, ALT 31 D, Alkaline Phosphatase 56, Total Protein 4.7 L D, Albumin 2.7 L D, Globulin 2.0, Albumin/Globulin Ratio 1.4 07/18/22 15:04: Hgb 9.1 L, Hct 26.8 L I & O for Last 24 hours: Intake & Output 07/15/22 07/16/22 07/17/22 07/18/22 23:59 23:59 23:59 23:59 Intake Total 1860 / 1860 120 / 120 Output Total 1000 / 1000 1000 / 1000 Balance 860 / 860 -880 / -880 Weight 52.702 kg 52.617 kg Constitutional Constitutional: no acute distress Comments: awake and alert, looks angry about everything. speaks clearly, and josue answer question. but is confused.. *Routine Respiratory Exam Comments: in no distress *Routine Cardiovascular Exam Cardiovascular: Present RRR *Routine Neurological Exam Neurological: Present alert Comments: no motor defict, , able to stand without assistance, move all extremities well Routine Psychiatric Exam Comments: is able to respond to all question and appears to be listien when health teaching done on why she was here , and the need for IV. she is only able to partially process this with what seems to be very short term memory , Assessment and Plan *Assessment and plan (1) Confusion with non-focal neuro exam: Status: Acute Category: Medical Code(s): R41.0 - Disorientation, unspecified (2) Non-compliant behavior: Status: Acute Category: Medical Code(s): R46.89 - Other symptoms and signs involving appearance and behavior Plan patient is stable at present time. I do believe that if we replace IV the patient will remove it. with her being stable will continue to monitor for changes. DO not want to have to use any type of physical restraint or chemical at this time. Teaching done but do not feel the patient would be compliant with present mental state IF patient condition worsened would then have to restart IV and give blood if bleeding was to resume . restraints would be needed if mental status unchanged. Rounded on patient after nurse practitioner. Personally examined and interviewed patient. Agree with exam findings and care plan as documented.
[2022-07-19] VITALS (28 sets, daily range): BP systolic 95–147; BP diastolic 51–88; PULSE 77–99; RESP 16–22; TEMP 36.4–37.1; O2SAT 95–100; BMI 21.8
--- NOTE | 2022-07-19 05:38 | PC.NURSE ---
pt has had 3 bright red sanguineous bowel movements this shift, pt gets up to bathroom independently, last bp 95/61, will be drawing H&H with am labs, pt has moments where not aggressive but if try to assist pt to bathroom or back to bed, etc pt does not want help and gets aggressive, bed alarm on, call light within reach
[2022-07-19 07:20] LABS: Alanine Aminotransferase 18 U/L (12-78); Albumin Level 2.4 g/dl (3.5-5.0); Albumin/Globulin Ratio 1.3 (1.1-1.8); Alkaline Phosphatase 52 U/L (38-126); Anion Gap 6.3 mEq/L (5-15); Aspartate Amino Transferase 63 U/L (14-36); Bilirubin,Total 0.5 mg/dl (0.2-1.3); Blood Urea Nitrogen 22 mg/dl (7-17); Calcium 7.1 mg/dl (8.4-10.2); Carbon Dioxide 23 mmol/L (22.0-30.0); Chloride 110 mmol/L (98-107); Creatinine Clearance Estimated 44 mL/min (50-200); Estimated Glomerular Filt Rate 121 ml/min (>60); GFR (African American) 146 ML/MIN (>60); Globulin 1.9 g/dL (1.3-3.2); Glucose 114 mg/dl (74-100); Magnesium 2.2 mg/dl (1.6-2.3); Potassium 3.3 mmoL/L (3.5-5.1); Sodium 136 mmol/L (136-145); Total Protein,Serum 4.3 g/dl (6.3-8.2)
[2022-07-19 07:23] LABS: Basophils % 0.2 % (0.1-2.0); Eosinophils % 0.3 % (0.1-12.0); Hematocrit 22.1 % (37.0-47.0); Lymphocytes # 1.7 K/mm3 (0.7-4.5); Lymphocytes % 19.2 % (10-50); Mean Corpuscular HGB Conc 33.5 g/dL (31.8-35.4); Mean Corpuscular Hemoglobin 30.5 pg (27.0-31.2); Mean Corpuscular Volume 91.1 fl (81-99); Mean Platelet Volume 7.6 fl (7.4-10.4); Monocytes # 0.6 K/mm3 (0.1-1.0); Monocytes % 6.7 % (1.7-9.3); Neutrophils # 6.6 K/mm3 (1.8-7.8); Neutrophils % 73.7 % (37.0-80.0); Platelet Count 189 K/mm3 (142-424); Red Blood Count 2.43 M/mm3 (4.20-5.40); Red Cell Distribution Width 14.2 % (11.5-17.5)
[2022-07-19 07:26] LABS: Hemoglobin 7.5 g/dL (12.2-16.2)
--- NOTE | 2022-07-19 10:03 | P.PN_ITS ---
Subjective Narrative: Patient has shown some confusion. Had some additional bloody bowel movement. Hemoglobin down this morning. Receiving transfusion. Exam Data for Last 24 hours Vital signs and Labs for Last 24 Hours: Temp Pulse Resp BP Pulse Ox 98.4 F 89 18 95/51 L 99 07/19/22 09:50 07/19/22 09:50 07/19/22 09:50 07/19/22 09:50 07/19/22 09:50 Laboratory Results - last 24 hr 07/17/22 13:13: Blood Type O Positive, Antibody Screen Negative, Crossmatch (AHG) See Detail 07/18/22 15:04: Hgb 9.1 L, Hct 26.8 L 07/19/22 06:40: WBC 9.0 D, RBC 2.43 L, Hgb 7.5 L D, Hct 22.1 L, MCV 91.1, MCH 30.5, MCHC 33.5, RDW 14.2, Plt Count 189 D, MPV 7.6, Neut % (Auto) 73.7, Lymph % (Auto) 19.2, [place] % (Auto) 6.7, Eos % (Auto) 0.3, Baso % (Auto) 0.2, Neut # (Auto) 6.6, Lymph # (Auto) 1.7, [place] # (Auto) 0.6, Eos # (Auto) 0.0, Baso # (Auto) 0.0 07/19/22 06:40: Sodium 136, Potassium 3.3 L D, Chloride 110 H, Carbon Dioxide 23, Anion Gap 6.3, BUN 22 H, Creatinine 0.50 L, Estimated Creat Clear 44, Estimated GFR 121, Est GFR ( Amer) 146 D, Glucose 114 H, Calcium 7.1 L, Magnesium 2.2, Total Bilirubin 0.5, AST 63 H D, ALT 18 D, Alkaline Phosphatase 52, Total Protein 4.3 L, Albumin 2.4 L D, Globulin 1.9, Albumin/Globulin Ratio 1.3 I & O for Last 24 hours: Intake & Output 07/16/22 07/17/22 07/18/22 07/19/22 11:59 11:59 11:59 11:59 Intake Total 1860 / 1860 840 / 840 Output Total 1500 / 1500 500 / 500 Balance 360 / 360 340 / 340 Weight 140 lb 116 lb 123 lb 4 oz Constitutional Constitutional: no acute distress Progress Note: A&P Assessment and plan (1) Confusion with non-focal neuro exam: Status: Acute (2) Non-compliant behavior: Status: Acute Assessment and Plan Assessment and Plan for All Diagnoses:: Patient receiving transfusion. Continue to monitor to your hemoglobin posttransfusion and for clinical bleeding. The patient continues to show evidence of bleeding and may require colonoscopy with possible intervention. Favor possible diverticular bleed. This is usually a self-limited process. Unfortunately patient is on dual antiplatelet therapy.
--- NOTE | 2022-07-19 12:45 | EXP.ACUTE.PN ---
Subjective *Date: 07/19/22 *Time: 14:57 Interval history: More pleasant and cooperative on exam this morning. Family at bedside. Stable on room air. Denies nausea or vomiting. Still having several bloody bowel movements daily. Hemoglobin down this morning, necessitating transfusion. Discussed performing transfusion today. Asked permission from patient, she seems more amenable to treatments and exams when given control over them. Afebrile. States she feels more energetic. Slept well. Tolerating good p.o. intake. Denies shortness of breath, confusion. Medical Exam Vital signs and Labs for Last 24 Hours: Vital Signs Temp Pulse Pulse Pulse Resp BP BP 07/19/22 12:10 98.0 F 79 18 115/72 07/19/22 11:35 98.4 F 80 18 117/66 07/19/22 10:35 98.4 F 87 17 95/60 L 07/19/22 08:00 07/19/22 10:20 98.6 F 84 17 107/57 L 07/19/22 10:05 98.0 F 86 18 101/60 L 07/19/22 09:50 98.4 F 89 18 95/51 L 07/19/22 09:45 98.0 F 89 18 96/56 L 07/19/22 09:40 98.0 F 87 17 104/58 L 07/19/22 09:35 98.2 F 86 17 101/61 L 07/19/22 09:15 98.2 F 87 18 98/57 L 07/19/22 09:06 98.3 F 90 22 127/62 07/19/22 04:00 97.6 F 89 18 95/61 L 07/18/22 20:00 92 H 16 104/96 L 07/19/22 00:00 98.5 F 86 18 106/58 L 07/18/22 20:00 97.7 F 07/18/22 16:36 97.9 F 07/18/22 16:00 101 H 22 137/49 L 07/18/22 15:15 90 20 105/62 L 07/18/22 14:45 89 20 102/62 L 07/18/22 14:30 92 H 18 108/64 L 07/18/22 14:15 92 H 20 107/65 L 07/18/22 14:00 97 H 18 109/64 L 07/18/22 13:52 101 H 20 109/66 L 07/18/22 14:00 93 H 07/18/22 13:39 98 H 17 102/51 L 07/18/22 13:29 103 H 15 93/59 L 07/18/22 13:19 111 H 15 94/55 L 07/18/22 13:09 97.6 F 125 H 16 71/25 L Pulse Ox 07/19/22 12:10 99 07/19/22 11:35 100 07/19/22 10:35 99 07/19/22 08:00 97 07/19/22 10:20 98 07/19/22 10:05 100 07/19/22 09:50 99 07/19/22 09:45 98 07/19/22 09:40 97 07/19/22 09:35 97 07/19/22 09:15 98 07/19/22 09:06 97 07/19/22 04:00 95 07/18/22 20:00 93 L 07/19/22 00:00 97 07/18/22 20:00 07/18/22 16:36 07/18/22 16:00 99 07/18/22 15:15 100 07/18/22 14:45 99 07/18/22 14:30 97 07/18/22 14:15 98 07/18/22 14:00 98 07/18/22 13:52 98 07/18/22 14:00 99 07/18/22 13:39 100 07/18/22 13:29 97 07/18/22 13:19 96 07/18/22 13:09 98 Intake and Output 07/18/22 07/19/22 07/19/22 23:59 07:59 15:59 Intake Total 120 / 120 970 / 970 Output Total 500 / 1000 0 / 0 0 / 0 Balance -380 / -880 0 / 970 970 / 970 Intake: Intake, Oral Amount 120 / 120 720 / 720 Intake (Blood Product) Amt 250 / 250 Red Blood Cells Unit 250 / 250 [id number] Output: Output, Urine Amount 500 / 1000 0 / 0 0 / 0 Other: Number of Unmeasured Voids 1 1 1 Weight 55.905 kg Patient Weight 07/19/22 23:59 Weight 55.905 kg Laboratory Results - last 24 hr 07/17/22 13:13: Blood Type O Positive, Antibody Screen Negative, Crossmatch (AHG) See Detail 07/18/22 15:04: Hgb 9.1 L, Hct 26.8 L 07/19/22 06:40: WBC 9.0 D, RBC 2.43 L, Hgb 7.5 L D, Hct 22.1 L, MCV 91.1, MCH 30.5, MCHC 33.5, RDW 14.2, Plt Count 189 D, MPV 7.6, Neut % (Auto) 73.7, Lymph % (Auto) 19.2, [place] % (Auto) 6.7, Eos % (Auto) 0.3, Baso % (Auto) 0.2, Neut # (Auto) 6.6, Lymph # (Auto) 1.7, [place] # (Auto) 0.6, Eos # (Auto) 0.0, Baso # (Auto) 0.0 07/19/22 06:40: Sodium 136, Potassium 3.3 L D, Chloride 110 H, Carbon Dioxide 23, Anion Gap 6.3, BUN 22 H, Creatinine 0.50 L, Estimated Creat Clear 44, Estimated GFR 121, Est GFR ( Amer) 146 D, Glucose 114 H, Calcium 7.1 L, Magnesium 2.2, Total Bilirubin 0.5, AST 63 H D, ALT 18 D, Alkaline Phosphatase 52, Total Protein 4.3 L, Albumin 2.4 L D, Globulin 1.9, Albumin/Globulin Ratio 1.3 I & O for Labs for Last 24 Hours: Intake & Output
--- NOTE | 2022-07-19 17:11 | PC.NURSE ---
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
--- NOTE | 2022-07-19 18:47 | PC.NURSE ---
pt had large amount of bloody stool, has become agitated and ripped out IV
[2022-07-19 20:25] LABS: Hemoglobin 9.1 g/dL (12.2-16.2)
[2022-07-19 20:26] LABS: Hematocrit 26.1 % (37.0-47.0)
--- NOTE | 2022-07-19 20:35 | PC.NURSE ---
notified night watch that pt keeps pulling iv's out and protonix is ordered iv, night watch to switch dose to PO
[2022-07-20] VITALS (29 sets, daily range): BP systolic 73–119; BP diastolic 40–64; PULSE 72–119; RESP 14–18; TEMP 36.4–37.6; O2SAT 93–100; BMI 21.2
[2022-07-20 04:00] LABS: Hemoglobin 7.6 g/dL (12.2-16.2)
--- NOTE | 2022-07-20 04:02 | PC.NURSE ---
0330 pt was observed by Renata,RN laying across the bed. Pt seemed to be starring at the ceiling and was non-responsive when staff engaged her, but was breathing and pulse present, pulses equal and reactive as well. Rapid response called at this time. Pt quickly started responding to staff when sat up on the side of the bed. Pt states she is fine and she wants to lay back in bed. When trying to assist pt she states to let me do it myself . Vitals obtained WNL. GHAZAL Enriquez at bedside and gives verbal orders for stat H&H. 0402- H&H reported to GHAZAL Enriquez at this time and gives order to transfuse 1 unit PRBC that is on hold for pt.
--- NOTE | 2022-07-20 04:12 | PC.NURSE ---
pt had episode of confusion with blank stare after getting up to the bathroom and pt reported large bloody stool, VSS, lab venice H&H and hemoglobin has come down to 7.6, SILVANA Lai stated to give other unit of blood being held in lab, supervisor network control operators TJ going to get blood from blood bank
--- NOTE | 2022-07-20 04:30 | PC.NURSE ---
starting ordered unit prbc
--- NOTE | 2022-07-20 07:30 | PC.NURSE ---
pt got one unit prbc this shift, pt had 3 large bloody bowel movements over the course of this shift, pt in better spirits this shift and let us keep bp cuff and sat probe on while giving blood, bed alarm on, call light within reach
--- NOTE | 2022-07-20 07:54 | EXP.ACUTE.PN ---
Subjective *Date: 07/20/22 *Time: 14:21 Interval history: Had a large bloody bowel movement overnight. Hemoglobin obtained at that time showed significant drop to 7.6. Transfused 1 unit overnight. Improved hemoglobin to 9.2 this morning. Receiving second unit however as patient is obviously continuing to bleed. Still complains of lower abdominal discomfort on exam. No hematemesis. Tolerating p.o. intake. No nausea or vomiting., No chest pain, no shortness of breath. Pleasant on exam this morning. Family at bedside and updated on plan. Medical Exam Vital signs and Labs for Last 24 Hours: Vital Signs Temp Pulse Pulse Resp BP BP Pulse Ox 07/20/22 06:44 98.0 F 88 16 89/52 L 100 07/20/22 06:35 98.1 F 80 16 73/40 L 100 07/20/22 05:35 97.8 F 83 16 84/57 L 99 07/20/22 04:00 98.1 F 119 H 18 96/52 L 99 07/20/22 05:20 97.8 F 80 14 87/52 L 100 07/20/22 05:05 98.0 F 88 14 93/50 L 99 07/20/22 04:50 97.9 F 80 16 85/50 L 99 07/20/22 04:45 98.0 F 84 16 91/53 L 97 07/20/22 04:40 98.0 F 84 16 92/55 L 99 07/20/22 04:35 97.9 F 81 16 89/53 L 100 07/20/22 04:30 97.9 F 88 18 88/53 L 100 07/20/22 03:30 98 H 16 96/52 L 97 07/20/22 00:00 99.6 F 83 18 108/64 L 93 L 07/19/22 20:00 98.3 F 95 H 18 105/88 L 98 07/19/22 22:00 79 100 07/19/22 21:00 99 H 18 105/88 L 99 07/19/22 18:50 98.2 F 82 18 135/75 99 07/19/22 17:50 98.0 F 77 18 145/78 H 99 07/19/22 16:50 98.3 F 80 17 110/70 100 07/19/22 16:35 98.5 F 78 16 117/65 100 07/19/22 16:20 98.4 F 82 16 112/71 98 07/19/22 16:05 98.6 F 80 16 125/67 100 07/19/22 16:00 100 07/19/22 16:04 98.4 F 78 18 101/55 L 100 07/19/22 16:00 98.3 F 81 17 125/63 100 07/19/22 15:55 98.7 F 83 16 119/62 100 07/19/22 15:50 98.2 F 81 16 116/66 100 07/19/22 15:30 98.0 F 82 18 147/76 H 99 07/19/22 12:10 98.0 F 79 18 115/72 99 07/19/22 11:35 98.4 F 80 18 117/66 100 07/19/22 10:35 98.4 F 87 17 95/60 L 99 07/19/22 08:00 97 07/19/22 10:20 98.6 F 84 17 107/57 L 98 07/19/22 10:05 98.0 F 86 18 101/60 L 100 07/19/22 09:50 98.4 F 89 18 95/51 L 99 07/19/22 09:45 98.0 F 89 18 96/56 L 98 07/19/22 09:40 98.0 F 87 17 104/58 L 97 07/19/22 09:35 98.2 F 86 17 101/61 L 97 07/19/22 09:15 98.2 F 87 18 98/57 L 98 07/19/22 09:06 98.3 F 90 22 127/62 97 Intake and Output 07/19/22 07/19/22 07/20/22 15:59 23:59 07:59 Intake Total 1690 / 2420 730 / 2420 250 / 250 Output Total 0 / 0 0 / 0 Balance 1690 / 2420 730 / 2420 250 / 250 Intake: Intake, Oral Amount 1440 / 1800 360 / 1800 Intake, Total IV Amount 120 / 120 Calcium Gluconate 2,000 mg In 0 120 / 120 .9 % Sodium Chloride 100 ml @ 60 mls/hr IV ONCE ONE Rx#: [id number] Intake (Blood Product) Amt 250 / 500 250 / 500 250 / 250 Red Blood Cells Unit 0 / 250 250 / 250 [id number] Red Blood Cells Unit 250 / 250 [id number] Red Blood Cells Unit 250 / 250 [id number] Output: Output, Urine Amount 0 / 0 0 / 0 Other: Number of Unmeasured Voids 1 1 Weight 54.245 kg Patient Weight 07/20/22 23:59 Weight 54.245 kg Laboratory Results - last 24 hr 07/17/22 13:13: Blood Type O Positive, Antibody Screen Negative, Crossmatch (AHG) See Detail 07/19/22 20:13: Hgb 9.1 L D, Hct 26.1 L 07/20/22 03:50: Hgb 7.6 L D, Hct 22.0 L I & O for Labs for Last 24 Hours: Intake & Output 07/17/22 07/18/22 07/19/22 07/20/22 23:59 23:59 23:59 23:59 Intake Total 1860 / 1860 120 / 120 2420 / 2420 250 / 250 Output Total 1000 / 1000 1000 / 1000 0 / 0 0 / 0 Balance 860 / 860 -880 / -880 2420 / 2420 250 / 250 Weight 52.702 kg 52.617 kg 55.905 kg 54.245 kg Constitutional: Present no acute distress, average body
[2022-07-20 08:45] LABS: Basophils % 0.3 % (0.1-2.0); Eosinophils # 0.1 K/mm3 (0.0-0.4); Eosinophils % 0.8 % (0.1-12.0); Hematocrit 26.6 % (37.0-47.0); Lymphocytes # 1.4 K/mm3 (0.7-4.5); Lymphocytes % 16.3 % (10-50); Mean Corpuscular HGB Conc 34.3 g/dL (31.8-35.4); Mean Corpuscular Hemoglobin 29.9 pg (27.0-31.2); Mean Corpuscular Volume 87.2 fl (81-99); Mean Platelet Volume 7.8 fl (7.4-10.4); Monocytes # 0.5 K/mm3 (0.1-1.0); Monocytes % 5.7 % (1.7-9.3); Neutrophils # 6.7 K/mm3 (1.8-7.8); Platelet Count 196 K/mm3 (142-424); Red Blood Count 3.05 M/mm3 (4.20-5.40); Red Cell Distribution Width 14.6 % (11.5-17.5); White Blood Count 8.7 K/mm3 (4.8-10.8)
[2022-07-20 08:46] LABS: Chloride 109 mmol/L (98-107); Hemoglobin 9.2 g/dL (12.2-16.2); Sodium 135 mmol/L (136-145)
[2022-07-20 08:47] LABS: Potassium 3.1 mmoL/L (3.5-5.1)
[2022-07-20 08:49] LABS: Blood Urea Nitrogen 15 mg/dl (7-17); Creatinine Clearance Estimated 43 mL/min (50-200); Estimated Glomerular Filt Rate 98 ml/min (>60); GFR (African American) 119 ML/MIN (>60)
[2022-07-20 08:50] LABS: Anion Gap 6.1 mEq/L (5-15); Calcium 6.8 mg/dl (8.4-10.2); Carbon Dioxide 23 mmol/L (22.0-30.0); Glucose 149 mg/dl (74-100)
--- NOTE | 2022-07-20 09:20 | P.PN_ITS ---
Subjective Narrative: Patient had received 2 units of packed red blood cells yesterday with good response. However overnight she had additional bloody bowel movement and she had decreased hemoglobin once again. Received an additional unit. Exam Data for Last 24 hours Vital signs and Labs for Last 24 Hours: Temp Pulse Resp BP Pulse Ox 97.9 F 88 16 86/59 L 100 07/20/22 07:44 07/20/22 07:44 07/20/22 07:44 07/20/22 07:44 07/20/22 07:44 Laboratory Results - last 24 hr 07/17/22 13:13: Blood Type O Positive, Antibody Screen Negative, Crossmatch ([facility]) See Detail 07/19/22 20:13: Hgb 9.1 L D, Hct 26.1 L 07/20/22 03:50: Hgb 7.6 L D, Hct 22.0 L 07/20/22 08:31: WBC 8.7, RBC 3.05 L D, Hgb 9.2 L D, Hct 26.6 L, MCV 87.2, MCH 29.9, MCHC 34.3, RDW 14.6, Plt Count 196, MPV 7.8, Neut % (Auto) 77.0, Lymph % (Auto) 16.3, [place] % (Auto) 5.7, Eos % (Auto) 0.8, Baso % (Auto) 0.3, Neut # (Auto) 6.7, Lymph # (Auto) 1.4, [place] # (Auto) 0.5, Eos # (Auto) 0.1, Baso # (Auto) 0.0 07/20/22 08:31: Sodium 135 L, Potassium 3.1 L, Chloride 109 H, Carbon Dioxide 23, Anion Gap 6.1, BUN 15 D, Creatinine 0.60, Estimated Creat Clear 43, Estimated GFR 98, Est GFR ( Amer) 119, Glucose 149 H, Calcium 6.8 L 07/20/22 08:31: Crossmatch ([facility]) See Detail I & O for Last 24 hours: Intake & Output 07/17/22 07/18/22 07/19/22 07/20/22 11:59 11:59 11:59 11:59 Intake Total 1860 / 1860 840 / 840 2670 / 2670 Output Total 1500 / 1500 500 / 500 0 / 0 Balance 360 / 360 340 / 340 2670 / 2670 Weight 140 lb 116 lb 123 lb 4 oz 119 lb 9.436 oz Constitutional Constitutional: no acute distress Progress Note: A&P Assessment and plan (1) GI (gastrointestinal bleed): Status: Acute Assessment and plan: Plan to proceed with colonoscopy tomorrow after bowel prep. (2) Unstable angina pectoris: Status: Acute (3) Acute blood loss anemia: Status: Acute (4) Acute coronary syndrome: Status: Acute (5) Long-term memory impairment: Status: Acute
--- NOTE | 2022-07-20 09:30 | CT_ITS ---
PROCEDURE INFORMATION: Exam: CTA Abdomen and Pelvis With Contrast Exam date and time: 07/20/2022 10:25 AM Age: 71 years old Clinical indication: Other: Gi bleeding in stool; Additional info: Gi bleeding-- blood in stool TECHNIQUE: Imaging protocol: Computed tomographic angiography of the abdomen and pelvis with contrast. 3D rendering (Not supervised by radiologist): MIP and/or 3D reconstructed images were created by the technologist. Radiation optimization: All CT scans at this facility use at least one of these dose optimization techniques: automated exposure control; mA and/or kV adjustment per patient size (includes targeted exams where dose is matched to clinical indication); or iterative reconstruction. Contrast material: ISOVUE; Contrast volume: 100 ml; Contrast route: INTRAVENOUS (IV); COMPARISON: CT ABDOMEN PELVIS WO CON 07/17/2022 2:17 PM FINDINGS: Lungs: Previously demonstrated bibasilar regions of atelectasis nearly completely resolved. Aorta: No aortic aneurysm. No aortic dissection. Celiac trunk and mesenteric arteries: No occlusion or significant stenosis. Renal arteries: No occlusion or significant stenosis. Right iliac arteries: No occlusion or significant stenosis. Left iliac arteries: No occlusion or significant stenosis. Liver: No mass. Gallbladder and bile ducts: Mild prominence of the common bile duct consistent with the patient's age. Pancreas: Unremarkable. No mass. No ductal dilation. Spleen: Unremarkable. No splenomegaly. Adrenal glands: Unremarkable. No mass. Kidneys and ureters: Unremarkable. No solid mass. No hydronephrosis. Stomach and bowel: Colonic diverticulosis. No evidence of diverticulitis. Subtle linear regions of enhancement are present in the region of the cecum and are also present in the transverse colon (coronal image number 35 through 37, series 5 image number 86). There is no pooling of contrast. The findings are compatible with small regions of hemorrhage. Appendix: No evidence of appendicitis. Intraperitoneal space: Unremarkable. No free air. No significant fluid collection. Lymph nodes: Unremarkable. No enlarged lymph nodes. Urinary bladder: Unremarkable. No mass. Reproductive: Unremarkable as visualized. Bones/joints: Lumbar spondylosis with multilevel disc degeneration. Findings stable. Soft tissues: Unremarkable. Other findings: Interpretation limited due to lack of noncontrast examination. Prior study comparison limited secondary to residual contrast. IMPRESSION: 1. Subtle linear regions of intraluminal enhancement involving the cecum as well as in the transverse colon. Findings compatible with small regions of hemorrhage. 2. Colonic diverticulosis. No evidence of diverticulitis.
--- NOTE | 2022-07-20 09:44 | HMH.ITSTN ---
called nurse to confirm scan -- I advised need AC or higher on IV-- she is going to try and get a new line and will call once they got it. pt has pulled out several IV's since she has been here. Advised to call when ready
[2022-07-20 17:53] LABS: Hemoglobin 10.1 g/dL (12.2-16.2)
[2022-07-20 17:56] LABS: Hematocrit 29.1 % (37.0-47.0)
--- NOTE | 2022-07-20 18:07 | PC.NURSE ---
pt received one unit of blood this shift, has been cooperative with care, no complaints of pain, ambulating to BR, has been drinking bowel prep, has had two bowel movements
--- NOTE | 2022-07-20 18:15 | PC.NURSE ---
pt has had 10 unmeasured voids today
--- NOTE | 2022-07-20 22:11 | PC.NURSE ---
got pt up to bathroom, pt voided but had no bowel movement and only 1 small drop of blood on toilet paper
--- NOTE | 2022-07-20 22:45 | PC.NURSE ---
pt had another copious dark green bowel movement, complete liquid this time (last time was more pasty)
[2022-07-21] VITALS: BP 108/57; PULSE 74; RESP 18; TEMP 36.7; O2SAT 98
[2022-07-21 04:00] VITALS: BP 121/63; PULSE 75; RESP 16; TEMP 36.6; O2SAT 100; BMI 22.0
[2022-07-21 06:22] LABS: Alanine Aminotransferase 24 U/L (12-78); Albumin Level 2.7 g/dl (3.5-5.0); Albumin/Globulin Ratio 1.4 (1.1-1.8); Alkaline Phosphatase 51 U/L (38-126); Anion Gap 6.7 mEq/L (5-15); Aspartate Amino Transferase 46 U/L (14-36); Bilirubin,Total 0.7 mg/dl (0.2-1.3); Blood Urea Nitrogen 10 mg/dl (7-17); Calcium 7.3 mg/dl (8.4-10.2); Carbon Dioxide 26 mmol/L (22.0-30.0); Chloride 108 mmol/L (98-107); Creatinine Clearance Estimated 45 mL/min (50-200); Estimated Glomerular Filt Rate 98 ml/min (>60); GFR (African American) 119 ML/MIN (>60); Globulin 1.9 g/dL (1.3-3.2); Glucose 101 mg/dl (74-100); Sodium 138 mmol/L (136-145); Total Protein,Serum 4.6 g/dl (6.3-8.2)
[2022-07-21 06:37] LABS: Hematocrit 27.6 % (37.0-47.0); Hemoglobin 9.7 g/dL (12.2-16.2)
[2022-07-21 06:59] LABS: Potassium 2.7 mmoL/L (3.5-5.1)
--- NOTE | 2022-07-21 07:02 | PC.NURSE ---
notified MD Wolf of pt's critical potassium of 2.7
--- NOTE | 2022-07-21 07:04 | PC.NURSE ---
notified Rola with OR that pt's potassium is 2.7, Rola stated that anesthesia needs potassium replaced and rechecked and then can proceed with colonoscopy
--- NOTE | 2022-07-21 07:19 | EXP.SURG.PN ---
Subjective Narrative: Patient underwent bowel prep. Still passing blood per rectum. Received 2 units yesterday. Potassium 2.7 this morning. Exam Data for Last 24 hours Vital signs and Labs for Last 24 Hours: Temp Pulse Resp BP Pulse Ox 97.9 F 75 16 121/63 100 07/21/22 04:00 07/21/22 04:00 07/21/22 04:00 07/21/22 04:00 07/21/22 04:00 Laboratory Results - last 24 hr 07/17/22 13:13: Crossmatch ([facility]) See Detail 07/20/22 08:31: WBC 8.7, RBC 3.05 L D, Hgb 9.2 L D, Hct 26.6 L, MCV 87.2, MCH 29.9, MCHC 34.3, RDW 14.6, Plt Count 196, MPV 7.8, Neut % (Auto) 77.0, Lymph % (Auto) 16.3, [place] % (Auto) 5.7, Eos % (Auto) 0.8, Baso % (Auto) 0.3, Neut # (Auto) 6.7, Lymph # (Auto) 1.4, [place] # (Auto) 0.5, Eos # (Auto) 0.1, Baso # (Auto) 0.0 07/20/22 08:31: Sodium 135 L, Potassium 3.1 L, Chloride 109 H, Carbon Dioxide 23, Anion Gap 6.1, BUN 15 D, Creatinine 0.60, Estimated Creat Clear 43, Estimated GFR 98, Est GFR ( Amer) 119, Glucose 149 H, Calcium 6.8 L 07/20/22 08:31: Blood Type O Positive, Antibody Screen Negative, Crossmatch ([facility]) See Detail 07/20/22 17:05: Hgb 10.1 L, Hct 29.1 L 07/21/22 05:45: Hgb 9.7 L, Hct 27.6 L 07/21/22 05:45: Sodium 138, Potassium 2.7 L*, Chloride 108 H, Carbon Dioxide 26, Anion Gap 6.7, BUN 10 D, Creatinine 0.60, Estimated Creat Clear 45, Estimated GFR 98, Est GFR ( Amer) 119, Glucose 101 H D, Calcium 7.3 L, Total Bilirubin 0.7, AST 46 H D, ALT 24 D, Alkaline Phosphatase 51, Total Protein 4.6 L, Albumin 2.7 L, Globulin 1.9, Albumin/Globulin Ratio 1.4 I & O for Last 24 hours: Intake & Output 07/18/22 07/19/22 07/20/22 07/21/22 11:59 11:59 11:59 11:59 Intake Total 1860 / 1860 840 / 840 2670 / 2670 2570 / 2570 Output Total 1500 / 1500 500 / 500 0 / 0 200 / 200 Balance 360 / 360 340 / 340 2670 / 2670 2370 / 2370 Weight 116 lb 123 lb 4 oz 119 lb 9.436 oz 124 lb 8 oz *Routine Abdominal Exam Abdominal: Present soft Progress Note: A&P Assessment and plan (1) GI (gastrointestinal bleed): Status: Acute Assessment and plan: Plan was for 7:30 AM colonoscopy. However, patient has mild hypokalemia. This is to be replaced with planned colonoscopy later today. (2) Unstable angina pectoris: Status: Acute (3) Acute blood loss anemia: Status: Acute (4) Acute coronary syndrome: Status: Acute (5) Long-term memory impairment: Status: Acute
[2022-07-21 08:00] VITALS: BP 131/78; PULSE 69; RESP 18; TEMP 36.7; O2SAT 95
[2022-07-21 08:06] VITALS: BMI 21.9
--- NOTE | 2022-07-21 10:33 | P.PN_ITS ---
Subjective Subjective Date: 07/21/22 Time: 10:33 Principal diagnosis: ACS, GI bleed Interval history: 71-year-old white female in bedside chair no acute distress. Denies any chest pain, pressure or tightness. She has continued to pass blood per rectum. She did receive 2 units of blood over the weekend. She was planned for a colonoscopy today but potassium was low this morning as she is receiving supplementation at this time with plans for colonoscopy later today. Aspirin discontinued over the weekend. She remains on Brilinta therapy. Exam Data for Last 24 hours Vital signs and Labs for Last 24 Hours: Temp Pulse Resp BP Pulse Ox 98.1 F 69 18 131/78 95 07/21/22 08:00 07/21/22 08:00 07/21/22 08:00 07/21/22 08:00 07/21/22 08:00 Laboratory Results - last 24 hr 07/17/22 13:13: Crossmatch ([facility]) See Detail 07/20/22 08:31: Blood Type O Positive, Antibody Screen Negative, Crossmatch ([facility]) See Detail 07/20/22 17:05: Hgb 10.1 L, Hct 29.1 L 07/21/22 05:45: Hgb 9.7 L, Hct 27.6 L 07/21/22 05:45: Sodium 138, Potassium 2.7 L*, Chloride 108 H, Carbon Dioxide 26, Anion Gap 6.7, BUN 10 D, Creatinine 0.60, Estimated Creat Clear 45, Estimated GFR 98, Est GFR ( Amer) 119, Glucose 101 H D, Calcium 7.3 L, Total Bilirubin 0.7, AST 46 H D, ALT 24 D, Alkaline Phosphatase 51, Total Protein 4.6 L, Albumin 2.7 L, Globulin 1.9, Albumin/Globulin Ratio 1.4 I & O for Last 24 hours: Intake & Output 07/18/22 07/19/22 07/20/22 07/21/22 11:59 11:59 11:59 11:59 Intake Total 1860 / 1860 840 / 840 2670 / 2670 2570 / 2570 Output Total 1500 / 1500 500 / 500 0 / 0 200 / 200 Balance 360 / 360 340 / 340 2670 / 2670 2370 / 2370 Weight 116 lb 123 lb 4 oz 119 lb 9.436 oz 123 lb 7.342 oz Constitutional Constitutional: no acute distress *Routine Respiratory Exam Respiratory: Present CTA bilaterally *Routine Cardiovascular Exam Cardiovascular: Present RRR *Routine Extremities Exam Extremities: Absent edema *Routine Neurological Exam Neurological: Present alert and oriented X3 Progress Note: A&P Assessment and plan (1) GI (gastrointestinal bleed): Status: Acute (2) Unstable angina pectoris: Status: Acute (3) Acute blood loss anemia: Status: Acute (4) Acute coronary syndrome: Status: Acute (5) Long-term memory impairment: Status: Acute Assessment and Plan Assessment and Plan for All Diagnoses:: 1.? CAD with unstable angina/acute coronary syndrome with fluctuating EKG changes.? -Status post 7 CRESENCIO to trifurcating disease of the left system (LAD, circumflex and ramus) with distal LAD supplied by right to left collaterals from RCA. -Only on Brilinta 90 mg twice daily currently due to continued GI bleed 2.? HTN -Controlled on no meds 3.? HLD, LDL 184, triglycerides 279, cholesterol 277, HDL 49 on 07/17/2022 -Atorvastatin 40 mg daily 4.? Memory impairment 5. GI bleed requiring multiple units of blood, current hemoglobin 9.7 this a.m. -On PPI therapy -Surgery consult/notes appreciated -Colonoscopy planned today
[2022-07-21 11:43] VITALS: BP 119/50; PULSE 88; RESP 18; TEMP 36.8; O2SAT 100
--- NOTE | 2022-07-21 15:00 | PC.NURSE ---
ON MORNING ASSESSMENT PT WAS UPDATED ON PLAN OF CARE AND WAS ALERT AND ORIENTED X3. PT WAS AMBULATING TO THE BATHROOM AND STATED SHE WAS STILL HAVING LOOSE BOWEL MOVEMENTS. AFTER PT GOT ALL OF HER RUNS OF POTASSIUM SHE DISCONNECTED HER OWN IV AND STATED IT WAS DONE AND SHE DIDN'T NEED IT CONNECTED ANY LONGER. AT 1130 PT CAME OUT OF THE ROOM AND STATED SHE WANTED TO TALK TO SOMEONE AND WANTED TO KNOW WHEN SHE WAS HAVING THE PROCEDURE B/C SHE HAD BEEN SITTING ALL DAY LONG AND WAS TIRED OF WAITING. STAFF WENT IN THE ROOM TO TALK TO PT AND SHE WAS SITTING IN THE CHAIR WITH HER ARMS CROSSED AND STATED I WANT MY CALLED TO COME GET ME B/C I'M READY TO LEAVE . PT WAS TOLD THAT HER WAS IN SURGERY BUT WE COULD GET HER SON ON THE PHONE SO SHE COULD TALK TO HIM. PT STATED IT DOES NOT MATTER AND YOU DON'T KNOW WHAT YOUR TALKING ABOUT SO GET OUT OF MY ROOM'. NOTIFIED SON OVER THE PHONE AND UPDATED HIM ON PT'S STATUS AND HE STATED HE WOULD TALK TO PT HOWEVER WHERE HE WAS WITH HIS DAD HE WAS UNABLE TO COME TO THE HOSPITAL AT THIS TIME. PT WAS GIVEN THE PHONE AND WHILE SHE WAS TALKING TO SON SHE WAS GETTING HERSELF DRESSED. WHEN PT HANDED THE PHONE BACK TO ME SHE HAD HER BELONGINGS IN HER HAND AND AMBULATED TOWARDS THE NURSES STATION AND STATED SHE WAS LEAVING AND NOBODY WAS TO TOUCH HER. STAFF TOLD PT THAT SHE COULD NOT LEAVE B/C SHE DID NOT HAVE A RIDE HERE TO GET HER. PT WAS DIRECTED BACK TO HER ROOM AND STATED I'M NOT HAVING ANYTHING DONE HERE AND I'M TIRED OF EVERYONE LAUGHING AT ME . ASSOCIATE PUBLISHER WAS NOTIFIED AND CAME TO THE ROOM TO TALK TO PT. TALKED TO PT AND NOTIFIED FAMILY AND OF PLAN.
--- NOTE | 2022-07-21 18:36 | PC.NURSE ---
2 lab techs came to floor to draw H&H that Dr. Wolf had ordered and pt agreed to, pt refused to have labs drawn by either photofinishing laboratory worker
--- NOTE | 2022-07-21 19:40 | PC.NURSE ---
Asked by Vale RIVERA not to enter patient's room per MD. Wolf. . spoke with the patient and those are her wishes.
--- NOTE | 2022-07-21 20:00 | PC.NURSE ---
Dr Wolf states no one is to enter pt room t/o night. No labs, assessment, vitals t/o night per Maryann. All staff made aware. Pt states she will open her door if she needs anything. Will do q2 checks to the best of my ability.
--- NOTE | 2022-07-21 23:54 | EXP.ACUTE.PN ---
Subjective *Date: 07/21/22 *Time: 16:00 Interval history: Patient pleasant on exam initially this morning. Allowed labs to be drawn. Has become more and more agitated during admission. Labs this morning with low potassium necessitating repletion before performing colonoscopy. She completed her bowel prep yesterday in anticipation of colonoscopy which she agreed to. This morning however she became more agitated and decided she no longer wanted to have her colonoscopy. Has been n.p.o. in anticipation. Declining further blood draws. Has not allowed repeat labs to monitor for improvement in potassium nor stability of hemoglobin. Denies any further bloody bowel movements. Denies any shortness of breath, chest pain, fatigue. Just reports being aggravated and wanting to be left alone. Asking for family today. Has had multiple phone conversations with them throughout the day. Appears paranoid by staff in the hallway. Knows who she is, where she is, cannot explain what we are trying to do but then declines medical interventions. Medical Exam Vital signs and Labs for Last 24 Hours: Vital Signs Temp Pulse Resp BP Pulse Ox 07/21/22 11:43 98.3 F 88 18 119/50 L 100 07/21/22 08:00 98.1 F 69 18 131/78 95 07/21/22 04:00 97.9 F 75 16 121/63 100 07/21/22 00:00 98.1 F 74 18 108/57 L 98 Intake and Output 07/21/22 07/21/22 07/21/22 07:59 15:59 23:59 Output Total 200 / 200 0 / 200 Balance -200 / -200 0 / -200 Output: Output, Urine Amount 200 / 200 0 / 200 Other: Number of Voids 0 Number of Unmeasured Voids 1 1 Weight 56.472 kg 56 kg Patient Weight 07/21/22 23:59 Weight 56 kg Laboratory Results - last 24 hr 07/21/22 05:45: Hgb 9.7 L, Hct 27.6 L 07/21/22 05:45: Sodium 138, Potassium 2.7 L*, Chloride 108 H, Carbon Dioxide 26, Anion Gap 6.7, BUN 10 D, Creatinine 0.60, Estimated Creat Clear 45, Estimated GFR 98, Est GFR ( Amer) 119, Glucose 101 H D, Calcium 7.3 L, Total Bilirubin 0.7, AST 46 H D, ALT 24 D, Alkaline Phosphatase 51, Total Protein 4.6 L, Albumin 2.7 L, Globulin 1.9, Albumin/Globulin Ratio 1.4 I & O for Labs for Last 24 Hours: Intake & Output 07/18/22 07/19/22 07/20/22 07/21/22 23:59 23:59 23:59 23:59 Intake Total 120 / 120 2420 / 2420 3540 / 3540 Output Total 1000 / 1000 0 / 0 0 / 200 200 / 200 Balance -880 / -880 2420 / 2420 3540 / 3340 -200 / -200 Weight 52.617 kg 55.905 kg 54.245 kg 56 kg Constitutional: Present no acute distress and average body habitus; Absent cooperative Head: Present atraumatic and normocephalic ENT: Present normal exam Respiratory: Present normal respiratory effort; Absent accessory muscle use, rhonchi, wheezes or crackles Cardiac: Present Reg Rate and Rhythm Skin: Present erythema Neuro: Present Grossly Intact, alert and awake Comment:: Oriented to person and place. Discussion about situation and current medical condition, she can repeat back what is going on. When informed that without intervention, she will continue to bleed and this can be life-threatening, she states understanding and declines intervention. States then just let me . Is agitated and requesting to be left alone but is not physically aggressive or combative. Poor insight to current disease process. Assessment and Plan *Assessment and plan (1) GI (gastrointestinal bleed): Status: Acute Category: Medical Code(s): K92.2 - Gastrointestinal hemorrhage, unspecified (2) Unstable angina pectoris: Status: Acute Category: Medical Code(s): I20.0 - Unstable angina (3) Acute blood loss anemia: Status: Acute Category: Medical Code(s): D62 - Acute posthemorrhagic anemia (4) Acute coronary syndrome: Status: Acute Category: Medical Code(s): I24.9 - Acute ischemic heart disease, unspecified (5) Long-term memory impairment: Status: Acute Category: Medical Code(s): R41.3 -
[2022-07-22] VITALS (29 sets, daily range): BP systolic 94–155; BP diastolic 51–81; PULSE 65–89; RESP 15–20; TEMP 36.2–36.9; O2SAT 93–100
--- NOTE | 2022-07-22 02:02 | PC.NURSE ---
Doctor/nurse orders to not enter patients room all night unless they call out.
[2022-07-22 06:46] LABS: Anion Gap 7.1 mEq/L (5-15); Blood Urea Nitrogen 10 mg/dl (7-17); Carbon Dioxide 23 mmol/L (22.0-30.0); Chloride 111 mmol/L (98-107); Creatinine Clearance Estimated 44 mL/min (50-200); Estimated Glomerular Filt Rate 98 ml/min (>60); GFR (African American) 119 ML/MIN (>60); Glucose 77 mg/dl (74-100); Potassium 3.1 mmoL/L (3.5-5.1); Sodium 138 mmol/L (136-145)
[2022-07-22 06:53] LABS: Basophils % 0.2 % (0.1-2.0); Eosinophils # 0.1 K/mm3 (0.0-0.4); Eosinophils % 0.8 % (0.1-12.0); Lymphocytes % 17.4 % (10-50); Mean Corpuscular HGB Conc 34.2 g/dL (31.8-35.4); Mean Corpuscular Volume 87.7 fl (81-99); Mean Platelet Volume 7.5 fl (7.4-10.4); Monocytes # 0.4 K/mm3 (0.1-1.0); Monocytes % 6.4 % (1.7-9.3); Neutrophils # 4.4 K/mm3 (1.8-7.8); Neutrophils % 75.2 % (37.0-80.0); Platelet Count 183 K/mm3 (142-424); Red Blood Count 2.22 M/mm3 (4.20-5.40); Red Cell Distribution Width 15.2 % (11.5-17.5); White Blood Count 5.9 K/mm3 (4.8-10.8)
[2022-07-22 07:01] LABS: Hematocrit 19.5 % (37.0-47.0); Hemoglobin 6.7 g/dL (12.2-16.2)
--- NOTE | 2022-07-22 07:21 | PC.NURSE ---
Pt continued to refuse care t/o night. Around 0500, pt walked out of room asking where she was and if her was here. Pt was reoriented. Pt pleasant at this time. Coffee given to pt and pt got up to chair. Agreeable to morning lab draw. No c/o voiced to staff. Updated son, Hany on pt care. Call light within reach.
--- NOTE | 2022-07-22 11:14 | EXP.CARD.PN ---
Subjective Subjective Date: 07/22/22 Time: 11:00 Principal diagnosis: ACS, GI bleed Interval history: This is a 71 and white female who underwent left cardiac catheterization and had 7 stents placed to her coronary arteries. Following her procedure the patient did have to get 2 units of packed red blood cells over the weekend with a colonoscopy planned for yesterday due to rectal bleeding and a CT showing cecum and transverse colon hemorrhage. The patient's colonoscopy was postponed yesterday due to hypokalemia and the patient fusing have the procedure completed. This morning she is agreeable in proceeding with the colonoscopy. She denies any chest pain or pressure. She denies any shortness of breath or edema. She denies any fever, chills, nausea, vomiting, diarrhea, PND orthopnea. The patient reports this morning that she had no blood per rectum overnight last night and thinks that it has stopped. Her aspirin was discontinued over the weekend due to the bleeding. She remains on Brilinta for recent coronary stenting. Exam Data for Last 24 hours Vital signs and Labs for Last 24 Hours: Temp Pulse Resp BP Pulse Ox 98.5 F 75 18 132/59 L 99 07/22/22 10:55 07/22/22 10:55 07/22/22 10:55 07/22/22 10:55 07/22/22 10:55 Laboratory Results - last 24 hr 07/20/22 08:31: Blood Type O Positive, Antibody Screen Negative, Crossmatch ([facility]) See Detail 07/20/22 16:11: Carcinoembryonic Ag 3.0 07/22/22 05:45: WBC 5.9 D, RBC 2.22 L D, Hgb 6.7 L* D, Hct 19.5 L*, MCV 87.7, MCH 30.0, MCHC 34.2, RDW 15.2, Plt Count 183, MPV 7.5, Neut % (Auto) 75.2, Lymph % (Auto) 17.4, Cherry % (Auto) 6.4, Eos % (Auto) 0.8, Baso % (Auto) 0.2, Neut # (Auto) 4.4, Lymph # (Auto) 1.0, Cherry # (Auto) 0.4, Eos # (Auto) 0.1, Baso # (Auto) 0.0 07/22/22 05:45: Sodium 138, Potassium 3.1 L, Chloride 111 H, Carbon Dioxide 23, Anion Gap 7.1, BUN 10, Creatinine 0.60, Estimated Creat Clear 44, Estimated GFR 98, Est GFR ( Amer) 119, Glucose 77 D, Calcium 7.0 L I & O for Last 24 hours: Intake & Output 07/19/22 07/20/22 07/21/22 07/22/22 23:59 23:59 23:59 23:59 Intake Total 2420 / 2420 3540 / 3540 0 / 0 Output Total 0 / 0 0 / 200 200 / 200 Balance 2420 / 2420 3540 / 3340 -200 / -200 0 / 0 Weight 123 lb 4 oz 119 lb 9.436 oz 123 lb 7.342 oz Constitutional Constitutional: no acute distress and average body habitus *Routine HEENT Exam Head: Present normocephalic and atraumatic ENT: Present mucous membranes moist *Routine Neck Exam Neck: Present supple, full ROM and normal carotid upstroke; Absent JVD, carotid bruit or lymphadenopathy *Routine Respiratory Exam Respiratory: Present CTA bilaterally, normal respiratory effort, able to speak in complete sentences and symmetric chest movement *Routine Cardiovascular Exam Cardiovascular: Present RRR, Normal S1 and Normal S2; Absent murmur or gallop *Routine Abdominal Exam Abdominal: Present soft and normoactive bowel sounds; Absent tenderness, distended or organomegaly *Routine Extremities Exam Extremities: Present full ROM, pulses intact and normal capillary refill; Absent cyanosis, clubbing or edema *Routine Skin Exam Skin: Present intact and warm; Absent erythema *Routine Neurological Exam Neurological: Present alert, oriented X3 and CN II-XII intact; Absent sensory deficit or motor deficit Routine Psychiatric Exam Psychiatric: Present normal affect Progress Note: A&P Assessment and plan (1) Acute coronary syndrome: Status: Acute (2) CAD (coronary atherosclerotic disease): Status: Acute (3) GI (gastrointestinal bleed): Status: Acute (4) Acute blood loss anemia: Status: Acute (5) Long-term memory impairment: Status: Acute (6) Non-compliant behavior: Status: Acute (7) History of hyperlipidemia: Status: Acute (8) History of hypertension: Status: Acute (9) Hypokalemia: Status: Acute Assessment and Plan Assessment and Plan for All Diagnoses:: Plan: 1.
--- NOTE | 2022-07-22 11:16 | PC.NURSE ---
pt left floor with surgery
--- NOTE | 2022-07-22 11:47 | P.PN_ITS ---
[facility] Disclaimer: The information contained in this section may have been updated after the patient was seen, as this information can be updated by other users. Medical History (Updated 07/22/22 @ 11:21 by Sneha Bush APRN) Acute blood loss anemia Acute carpal tunnel syndrome of left wrist Acute carpal tunnel syndrome of right wrist Acute coronary syndrome CAD (coronary atherosclerotic disease) GI (gastrointestinal bleed) History of hyperlipidemia History of hypertension Hypokalemia Long-term memory impairment Unstable angina pectoris Family History Other Family history of myocardial infarction Social History (Updated 07/18/22 @ 12:50 by Manolo Jones CRNA) Smoking Status: Never smoker alcohol intake: never substance use type: denies use current occupational status: retired Travel in the last 8 weeks: None [facility] Anesthesia Checklist Patient Identification Patient Identification: Arm Band and Verbal (Name & ) Structural Data Admitted From: Inpatient Planned Operative Procedure/s: colonoscopy Consent for Planned Operative Procedure(s) Verified: Yes Verified Documents: Surgical Consent and History and Physical NPO Status Verified Time NPO: 00:00 Additional verifications Anesthesia Reactions: No Airway Assessment C-Spine Mobility Assessed: Yes TMJ Mobility Assessed: Yes Dentition: Good Dentition (upper dentures removed) Neurological Assessment Level of Consciousness: Awake and Alert Anesthesia Plan Anesthesia Risk discussed: Yes Anesthesia Plan: Verified ASA Class: III Anesthesia Type: MAC
--- NOTE | 2022-07-22 12:19 | DIET.NUTRFU ---
Patient has been receiving minimal calories since admit secondary to liquid diet and surgery plan. She was suppose to complete a colonscopy yesterday but refused to go down. Provider reviewed procedure and need to complete to determine if GI bleed. She agreed to go down today. After procedure and diet is advanced my need a additional supplement to meet nutritional needs. Patient has also had some behavioral changes secondary to brain injury, it is better to visit when family available.
--- NOTE | 2022-07-22 13:08 | HMH.SCOPE ---
Procedure: Date: 07/22/22 Patient Date of :: 1950 Procedure Performed:: Total colonoscopy to terminal ileum Esophagogastroduodenoscopy Indications:: Patient is a 71-year-old female who had presented to the emergency department in the morning of 07/17/2022 with chest pain. She was evaluated and had EKG changes. There were findings consistent with myocardial infarction and cardiology had taken the patient to the Lab Nurse at which time she underwent deployment of 7 drug-eluting stents. Following that the patient had a large bloody bowel movement. Hemoglobin on admission was 10. Subsequent hemoglobin was 7.2. Surgical consultation was obtained and patient was seen and examined. She underwent upper endoscopy on 07/18/2022 which revealed no upper GI etiology for blood loss. It was felt that this may be diverticular. Patient had continued to show evidence of bleeding with passage of blood per rectum. Given this arrangements were made for preparation and colonoscopy. Plan was made to proceed with colonoscopy in the morning of 07/21/2022. However, she had some mild hypokalemia which need to be replenished and arrangements were made for colonoscopy later that day for possible intervention for possible lower GI bleeding. Unfortunately the patient had become more agitated during the day at that time and was refusing colonoscopy and declining further blood draws. Therefore, that time patient was not forced to undergo colonoscopy against her will. Unfortunately once again the following morning she showed further decrease in her hemoglobin. Long discussion was held with the patient. She did agree to undergo colonoscopy at that time. Performing Provider:: Hany Clark MD Referring Provider:: Dr. Barnhart Sedation:: MAC sedation Procedure:: Patient was taken to endoscopy procedure room. She was positioned in lateral decubitus position. Adequate intravenous sedation was achieved with anesthesia titration propofol. Digital examination revealed gross blood per rectum. Olympus endoscope was inserted via the anus. There was some blood within the rectum. Thorough irrigation and suctioning was performed. Ultimately the colonoscope was able to be advanced to the cecum. The colon was filled with maroon-colored blood with a few blood clots. There were no obstructing masses. A very thorough high-volume transcolonoscopic irrigation was performed with approximately 3 L of saline for some visualization. The ileocecal valve and the appendiceal orifice were identified. The colonoscope was ultimately advanced a generous distance into the terminal ileum. There was liquid blood within the terminal ileum. The colonoscope was advanced approximately 15 cm proximal to the ileocecal valve and there was evidence of blood within the small bowel. Colonoscope was withdrawn into the cecum. As the colonoscope was withdrawn thorough irrigation was performed. There were no obstructing masses and there was no evidence of any obvious active bleeding but of course given the degree of blood in her colon visualization was suboptimal. But there was no evidence of any active bleeding throughout. Colonoscope was withdrawn. Given the findings of possible small bowel etiology with large burden of blood within the colon and distal small bowel decision was made to repeat upper endoscopy. Consent was obtained from family. Patient was repositioned. Variable stiffness pediatric Olympus colonoscope was inserted via the oropharynx and passed in the esophagus. Overall esophagus appeared relatively unremarkable with possibly some mild esophageal dysmotility. Gastroesophageal junction was encountered at 35 cm from the incisors. Stomach was cannulated and insufflated. Retroflexion revealed no evidence of any appreciable hiatal hernia. Gastric lumen was unremarkable. Pylorus was identified. Pylorus was traversed. The colonoscope was able to be advanced a generous distance down the
--- NOTE | 2022-07-22 13:24 | SUR.PHASEII ---
Report called to Meenu Rivas RN @ this time.
--- NOTE | 2022-07-22 13:55 | PC.NURSE ---
spoke with about post h/h stated to get a cbc at 1800 and then another h/h at midnight and then another cbc for the morning at 0600
--- NOTE | 2022-07-22 14:21 | SUR.PREOP ---
2nd unit of blood infused at 999ml/hr as directed per Tyler Marroquin, JOHNY
--- NOTE | 2022-07-22 15:30 | PC.NURSE ---
pt has been pleasant so far this shift. alert x3, unable to describe the situation. since coming back up from scope, vss. pt only agreed to take brilanta this morning and took her protonix after returning to floor. instructed pt to use cb when needing to ge tup, so far pt has called and and done well. pt now lying in bed resting. cb and personal items within reach, no concerns at this time
--- NOTE | 2022-07-22 18:34 | EXP.PN ---
Subjective *Date: 07/22/22 *Time: 18:34 Interval history: Date of service July 22, 2022 The patient is accompanied by her son Orion. I am accompanied by multiple members of the multidisciplinary rounding team including her nurse and lining caser. She reports no abdominal pain and is ready to go home. We have discussed her morning hemoglobin is 6.7. Staff are concerned with her insight into her disease process and decision making. A morning evaluation by staff has identified a Mini-Mental status exam of 27. Her son Scott at bedside reports he has identified some memory changes in his mother over the past year. He reports that she has good and bad days. Today the patient understands that she is in the hospital and is having loss of blood. She understands that she recently had a heart cath and had multiple drug-eluting stents (7) and the importance of her Brilinta therapy. She has been previously been offered a choice of bleeding evaluation with endoscopy and declined but now understands that her hemoglobin is low and she needs a blood transfusion and is willing to proceed with colonoscopy (further endoscopy). She appreciates the facts presented and recognizes the relevance to her health. She is able to reason and understands the risk of morbidity and . She understands why a colonoscopy is important. We have discussed that a colonoscopy may be able to identify colon cancer or help identify the area of bleeding. We reviewed her previous CTA identifying concerns for bleeding and diverticulosis. General surgery is following. She is agreeable to receiving a blood transfusion. Nursing staff report that she remains afebrile with stable vital signs and saturating appropriately on 2 L of oxygen via nasal cannula. Exam Data for Last 24 hours Vital signs and Labs for Last 24 Hours: Temp Pulse Resp BP Pulse Ox 98.2 F 70 18 148/62 H 100 07/22/22 17:55 07/22/22 17:55 07/22/22 17:55 07/22/22 17:55 07/22/22 17:55 Laboratory Results - last 24 hr 07/20/22 08:31: Blood Type O Positive, Antibody Screen Negative, Crossmatch (AHG) See Detail 07/20/22 16:11: Carcinoembryonic Ag 3.0 07/22/22 05:45: WBC 5.9 D, RBC 2.22 L D, Hgb 6.7 L* D, Hct 19.5 L*, MCV 87.7, MCH 30.0, MCHC 34.2, RDW 15.2, Plt Count 183, MPV 7.5, Neut % (Auto) 75.2, Lymph % (Auto) 17.4, Door % (Auto) 6.4, Eos % (Auto) 0.8, Baso % (Auto) 0.2, Neut # (Auto) 4.4, Lymph # (Auto) 1.0, Door # (Auto) 0.4, Eos # (Auto) 0.1, Baso # (Auto) 0.0 07/22/22 05:45: Sodium 138, Potassium 3.1 L, Chloride 111 H, Carbon Dioxide 23, Anion Gap 7.1, BUN 10, Creatinine 0.60, Estimated Creat Clear 44, Estimated GFR 98, Est GFR ( Amer) 119, Glucose 77 D, Calcium 7.0 L I & O for Last 24 hours: Intake & Output 07/19/22 07/20/22 07/21/22 07/22/22 23:59 23:59 23:59 23:59 Intake Total 2420 / 2420 3540 / 3540 1240 / 1240 Output Total 0 / 0 0 / 200 200 / 200 0 / 0 Balance 2420 / 2420 3540 / 3340 -200 / -200 1240 / 1240 Weight 55.905 kg 54.245 kg 56 kg Constitutional Constitutional: no acute distress, thin and cooperative *Routine HEENT Exam Head: Present normocephalic Eye: Present EOMI and PERRL ENT: Present mucous membranes moist *Routine Neck Exam Neck: Present supple; Absent lymphadenopathy *Routine Respiratory Exam Respiratory: Present CTA bilaterally, normal respiratory effort, able to speak in complete sentences and symmetric chest movement *Routine Cardiovascular Exam Cardiovascular: Present RRR *Routine Abdominal Exam Abdominal: Present soft and normoactive bowel sounds; Absent tenderness *Routine Extremities Exam Extremities: Present normal capillary refill; Absent cyanosis, clubbing or edema *Routine Skin Exam Skin: Present warm; Absent rash *Routine Neurological Exam Neurological: Present alert, oriented X3, moving all extremities, vision grossly intact, hearing grossly intact and normal speech Routine Psychiatric Exam Psychiatric: Present normal affect, normal tho
[2022-07-22 18:35] LABS: Basophils % 0.2 % (0.1-2.0); Eosinophils % 0.4 % (0.1-12.0); Hematocrit 22.7 % (37.0-47.0); Lymphocytes # 0.9 K/mm3 (0.7-4.5); Mean Corpuscular HGB Conc 33.4 g/dL (31.8-35.4); Mean Corpuscular Hemoglobin 29.9 pg (27.0-31.2); Mean Corpuscular Volume 89.7 fl (81-99); Mean Platelet Volume 8.4 fl (7.4-10.4); Monocytes # 0.4 K/mm3 (0.1-1.0); Monocytes % 4.6 % (1.7-9.3); Neutrophils # 6.9 K/mm3 (1.8-7.8); Neutrophils % 83.7 % (37.0-80.0); Platelet Count 170 K/mm3 (142-424); Red Blood Count 2.53 M/mm3 (4.20-5.40); Red Cell Distribution Width 14.9 % (11.5-17.5); White Blood Count 8.3 K/mm3 (4.8-10.8)
[2022-07-22 18:42] LABS: Hemoglobin 7.6 g/dL (12.2-16.2)
--- NOTE | 2022-07-22 21:16 | EXP.DC.SUM ---
General Admission date:: 07/17/22 Discharge date: 07/22/22 HPI HPI HPI: Ms. Holder is a 73-year-old female who presented to the ER this morning with complaint of chest pain radiating into both her arms. helps provide history. States the pain began early this morning and was not getting better. Proximately an hour before arrival. She stated that it was in her chest and pointed to her sternum. brought her to the ER for further evaluation. He states that she has memory issues over the past several years concerning for dementia. She has never had complaint of chest pain before and generally does not complain of symptoms often. Does not currently see a doctor and takes only [id number] medications occasionally including Aleve and Tylenol. Unable to quantify intensity of pain but just states that it hurts. She was initially given 2 sublingual nitroglycerin with improvement in her pain but also decrease in her blood pressure. Noted to be hypertensive on arrival to the ER. Started on a heparin drip with a loading dose of aspirin and Brilinta for concern for unstable angina/NSTEMI. Initial EKG obtained showing ST and T wave depressions in inferior and anterolateral leads. Cardiology was consulted for unstable angina. Initial troponin 0.03. Patient was taken to the [facility] from the ER where she underwent stenting of multivessel disease. Significant disease identified in the [facility] however patient is not a candidate for bypass surgery due to her dementia. Admitted to medicine after cath for further management. After arriving to the floor, patient noted to have a large maroon bowel movement. denies any previous history of melena or hematochezia however he does report that when he and his son were working on a problem with her plumbing at their house 2 days ago, he noted blood in the pipes. Patient is somnolent after her procedure however is complaining of tenderness in her lower abdomen on exam and denying any further chest pain at this time. Hospital Course Hospital Course Hospital Course: Evaluation of patient on 07/22 prior to discharge: She reports no abdominal pain and is ready to go home. ? We have discussed her morning hemoglobin is 6.7.? Staff are concerned with her insight into her disease process and decision making.? A morning evaluation by staff has identified a Mini-Mental status exam of 27.? Her son Scott at bedside reports he has identified some memory changes in his mother over the past year.? He reports that she has good and bad days.? Today the patient understands that she is in the hospital and is having loss of blood.? She understands that she recently had a heart cath and had multiple drug-eluting stents (7) and the importance of her Brilinta therapy.? She has been previously been offered a choice of bleeding evaluation with endoscopy and declined but now understands that her hemoglobin is low and she needs a blood transfusion and is willing to proceed with colonoscopy (further endoscopy).? She appreciates the facts presented and recognizes the relevance to her health.? She is able to reason and understands the risk of morbidity and .? She understands why a colonoscopy is important.? We have discussed that a colonoscopy may be able to identify colon cancer or help identify the area of bleeding.? We reviewed her previous CTA identifying concerns for bleeding and diverticulosis.? General surgery is following.? She is agreeable to receiving a blood transfusion.? Nursing staff report that she remains afebrile with stable vital signs and saturating appropriately on 2 L of oxygen via nasal cannula. Mini-Mental status exam 27 out of 30 today The aid to capacity evaluation is performed today and the patient is demonstrating that she understands what is wrong with her and able to decide with the different treatment options offered.? She express concerns for those choices and asks appropriate questions.?
--- NOTE | 2022-07-22 23:27 | PC.NURSE ---
PT LEFT WITH EMS AT THIS TIME
== END 2022-07-22 23:33 | disposition short-term general hospital (02) | DRG 246 ==
LOC: ER 08:31 → CATHLAB 09:06 → 2ND 11:13
PROVIDERS: Internal Medicine; Nurse Practitioner Acute Care; Surgery; Admitting Provider Internal Medicine Adolescent Medicine; Emergency Provider Emergency Medicine; Visit Provider Family Medicine
PROC: 027337Z Dilation of Coronary Artery, Four or More Arteries with Four or More Drug-eluting Intraluminal Devices, Percutaneous Approach (ICD-10-PCS; principal; 2022-07-17 10:00)
PROC: 0DJ08ZZ Inspection of Upper Intestinal Tract, Via Natural or Artificial Opening Endoscopic (ICD-10-PCS; CPT 43235; principal; 2022-07-18 12:30)
PROC: 0DJD8ZZ Inspection of Lower Intestinal Tract, Via Natural or Artificial Opening Endoscopic (ICD-10-PCS; principal; 2022-07-22 11:30)
PROC: 0DJ08ZZ Inspection of Upper Intestinal Tract, Via Natural or Artificial Opening Endoscopic (ICD-10-PCS; CPT 43235; 2022-07-22 11:30)
DX: I21.4 Non-ST elevation (NSTEMI) myocardial infarction (principal); D62 Acute posthemorrhagic anemia; K92.2 Gastrointestinal hemorrhage, unspecified; I25.110 Atherosclerotic heart disease of native coronary artery with unstable angina pectoris; I10 Essential (primary) hypertension; E78.5 Hyperlipidemia, unspecified; R41.3 Other amnesia; Z91.199 Patient's noncompliance with other medical treatment and regimen due to unspecified reason; E87.6 Hypokalemia; Q27.39 Arteriovenous malformation, other site
CPT/HCPCS: 43239; 45378; 36415; 71045; 74174; 74176; 80048; 80053; 80061; 80076; 82378; 82962; 83036; 83735; 84484; 85007; 85014; 85018; 85025; 85347; 85610; 85730; 86850; 92928; 92929; 92941; 93005; 93306; 93454; 99152; 99153; 99285; C1725; C1769; C1876; C9600; C9601; C9606; C9803; J1364; J1644; J2354; J2704; P9016; Q9967; U0003; U0005